=== PATIENT | male | born 1985 | race Caucasian/White ===

== ENCOUNTER 2017-05-11 13:57 | Emergency (ER) | payer OTHER, SELFPAY ==
[2017-05-11 13:58] VITALS: BP 158/122; PULSE 111; RESP 16; TEMP 35.8; O2SAT 97; BMI 33.3
[2017-05-11] MEDS: HYDROcodone Bitartrate/Apap 5/325 Tablet PO (14:19)
[2017-05-11] MEDS: Diphth,Pertuss(Acell),Tet Vac 0.5 ML Vial IM (14:20)
[2017-05-11] MEDS: Silver Sulfadiazine 1% Crm 50 gm Bottle 1 APPLIC TOPICAL (14:21)
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
--- NOTE | 2017-05-11 15:37 | ED.DEP ---
ED Disposition - Plan for ED Patient: Disposition: Home or Assisted Living Chief Complaint: Burn Instructions: ED Burn Thermal D 2nd Dressing Prescriptions: Hydrocodone Bitart/Apap 5-325 [[place] 5/325] 1 - 2 tablet PO Q6H PRN PRN 4 Days #12 tablet PRN Reason: Pain Referrals: [facility] [[facility]] - 3-5 Days
--- NOTE | 2017-05-11 15:40 | DCINST.ED_ITS ---
ED Disposition - Plan for ED Patient: Disposition: Home or Assisted Living Chief Complaint: Burn Instructions: ED Burn Thermal D 2nd Dressing Prescriptions: Hydrocodone Bitart/Apap 5-325 [[place] 5/325] 1 - 2 tablet PO Q6H PRN PRN 4 Days # 12 tablet PRN Reason: Pain Referrals: [facility] [[facility]] - 3-5 Days
--- NOTE | 2017-05-11 15:44 | ED.DEP ---
ED Disposition - Plan for ED Patient: Disposition: Home or Assisted Living Chief Complaint: Burn Instructions: ED Burn Thermal D 2nd Dressing Prescriptions: Hydrocodone Bitart/Apap 5-325 [[place] 5/325] 1 - 2 tablet PO Q6H PRN PRN 4 Days #12 tablet PRN Reason: Pain Referrals: [facility]] - 3-5 Days
--- NOTE | 2017-05-11 15:45 | DCINST.ED_ITS ---
ED Disposition - Plan for ED Patient: Disposition: Home or Assisted Living Chief Complaint: Burn Instructions: ED Burn Thermal D 2nd Dressing Prescriptions: Hydrocodone Bitart/Apap 5-325 [[place] 5/325] 1 - 2 tablet PO Q6H PRN PRN 4 Days # 12 tablet PRN Reason: Pain Referrals: [facility] [[facility]] - 3-5 Days
[2017-05-11 16:03] VITALS: BP 145/99; PULSE 83; RESP 16; O2SAT 99
== END 2017-05-11 16:04 | disposition home or self-care (01) ==
PROVIDERS: Emergency Provider Emergency Medicine; Family Provider Physician Assistant; PCP Physician Assistant
DX: T30.0 Burn of unspecified body region, unspecified degree (principal); T23.231A Burn of second degree of multiple right fingers (nail), not including thumb, initial encounter; X08.8XXA Exposure to other specified smoke, fire and flames, initial encounter; Y93.9 Activity, unspecified; Y92.9 Unspecified place or not applicable; Y99.9 Unspecified external cause status; Z23 Encounter for immunization
CPT/HCPCS: 90715; 99283; J7030

== ENCOUNTER 2017-10-17 14:08 | Observation (INO) | payer OTHER, SELFPAY ==
[2017-10-17] VITALS (10 sets, daily range): BP systolic 128–154; BP diastolic 71–101; PULSE 63–81; RESP 12–20; TEMP 36.3–36.8; O2SAT 95–99; BMI 33.0; BMI 32.7
--- NOTE | 2017-10-17 14:19 | EKG12_ITS ---
Test Reason : CP Blood Pressure : / mmHG Vent. Rate : 068 BPM Atrial Rate : 068 BPM P-R Int : 116 ms QRS Dur : 124 ms QT Int : 390 ms P-R-T Axes : 018 014 042 degrees QTc Int : 414 ms Normal sinus rhythm RSR' or QR pattern in V1 suggests right ventricular conduction delay ST & T wave abnormality, consider anterior ischemia Abnormal ECG Confirmed by BRANDY GALLAGHER ([id number]), editor farm journal ALEA OSBORN ([id number]) on 10/22/2017 2:34:27 PM Referred By: Dimas Patel Confirmed By:BRANDY GALLAGHER
[2017-10-17] MEDS: Aspirin 81 MG TAB.CHEW 324 MG PO (14:29)
[2017-10-17 14:32] LABS: Absolute Lymphocyte Count 2.93 X10^3/ul (0.83-4.51); Absolute Neutrophil Count 3.7 X10^3/uL (2.0-7.7); Basophil# 0.06 X10^3/uL; Basophil% 0.8 % (0-1); Eosinophil# 0.11 X10^3/uL; Eosinophils% 1.4 % (0-5); Hematocrit 47.4 % (40-54); Hemoglobin 16.4 g/dl (13.0-16.5); Lymphocyte # 2.93 X10^3/ul (4.0); Lymphocyte % 38.6 % (19-41); Mean Corp Hgb Conc 34.6 g/gl (32-36); Mean Corpuscular Hgb 29.3 pg (27.0-32.0); Mean Corpuscular Volume 84.8 fL (80-94); Mean Platelet Vol. 11.4 fl (6.2-12.0); Monocyte# 0.75 X10^3/uL; Monocyte% 9.9 % (0-10); Neutrophil # 3.73 X10^3/uL (2.7-7.7); Neutrophil % 49.2 % (47-70); Platelet Count 261 K/mm3 (150-450); RBC Distribution Width CV 12.6 % (11.6-14.6); RBC Distribution Width SD 39.1 fl (35.1-43.9); Red Blood Count 5.59 M/mm3 (4.6-6.2); White Blood Count 7.6 K/mm3 (4.4-11.0)
[2017-10-17 14:33] LABS: POSITIVE COUNT NO; POSITIVE DIFFERENTIAL NO; POSITIVE MORPHOLOGY NO
[2017-10-17 14:44] LABS: Anion Gap 9 (5-15); BUN 17 mg/dL (7-18); BUN/Creat Ratio 12.1 RATIO (10-20); Calcium,Total 9.1 mg/dL (8.5-10.1); Chloride 105 mmol/L (98-107); Creatinine, Serum 1.41 mg/dL (0.70-1.30); EST Glomerular Filtration Rate 62 mL/min (>60); Est Glom Filt Rate - Afr Amer 75 mL/min (>60); Estimated Creatinine Clearance 89.89 ml/min; Glucose 91 mg/dL (74-106); Potassium 3.7 mmol/L (3.5-5.1); Sodium Level 142 mmol/L (136-145)
--- NOTE | 2017-10-17 14:48 | ED.DCSUM_ITS ---
- ER Visit Summary Date of Service: 10/17/17 Chief Complaint: Abnormal EKG History of Present Illness: The patient is a 32 M presents to the emergency department with intermittent chest pain and an abnormal EKG. The patient is otherwise healthy. He is on no daily medications. He had outpatient physical done 2 days ago. He had told the nurse practitioner the been having intermittent chest pain. It is not exertional. He denies orthopnea. He states from time to time, he will get a tightness in his left chest. He denies being short of breath. They did an EKG which was abnormal. He was referred to Dr. Joy who called the patient and told him to come to the emergency department. There is no known history of coronary vascular disease. He denies any recent travel. He has no history of pulmonary embolus. Physical Examination: Vital signs reviewed General: Well-nourished, well-developed Head: Normocephalic, atraumatic Eyes: Pupils equal and reactive, extraocular muscles intact Neck, supple, no lymphadenopathy Heart: Regular rate and rhythm Respiratory: No distress, clear bilaterally Abdomen: Soft, nontender, nondistended, no peritoneal signs Back: Nontender Extremities: Nontender, no edema, no cords Skin: Normal color no rash Neuro: Alert and oriented, no focal or lateralizing deficits Test Results: [] Emergency Department Course and Treatment: The patient presents to the emergency department with intermittent chest pain. His EKG is obtained. He has rather large anterior T-wave inversions that are concerning for LAD versus posterior distribution of ischemia. He has absolutely no pain at rest. The patient does have a strong family history of heart disease. His father had his first NE at 35. Labs are obtained. His cardiac enzymes are negative. I did review the EKG with Dr. Estes. As this EKG is very concerning, the plan will be to admit the patient overnight for heart catheterization in the morning. The patient is agreeable with this plan of care. Treatment Plan: [] Disposition: Admission Impression: 1. Abnormal EKG This note was generated with [employer] dictation software. It may contain incorrect words, spelling, and punctuation that were not noted in review of the chart prior to signing ED Disposition - Plan for ED Patient: Chief Complaint: Chest Pain Referrals: Adam Durant PA [Primary Care Provider] -
[2017-10-17] MEDS: Clopidogrel Bisulfate 300 MG Tablet PO (15:31)
[2017-10-17] MEDS: Enoxaparin 120 MG/0.8 ML Syringe SC (15:57)
--- NOTE | 2017-10-17 16:33 | PCM.CONS.C ---
Problem List (1) Chest pain Status: Acute (2) Abnormal EKG Status: Acute (3) Hypertension Status: Chronic Reason for Consult Date of Consultation: 10/17/17 Reason for Consultation: Chest pain, abnormal EKG, hypertension, positive family history of premature coronary artery disease History of Present Illness: The patient is a 32 year old M nondiabetic, lifelong non-smoker, occasional alcohol user with 1 beer per week, strong positive family history in his father who had a myocardial infarction at age 35, unknown treatment per the patient, with hypertension, and no known previous cardiac history. The patient states that he has had left upper chest pain on and off for the past year, usually while at work and under significant amount of stress. He describes this as a heaviness, with no associated shortness of breath or nausea. Patient had a recurrent episode yesterday which he brought to the attention of his PCP and an EKG was performed. This demonstrated normal sinus rhythm, with evidence of incomplete right bundle branch block and significant anterior septal ST segment depression consistent with ischemia. He was then urgently referred to Dr. Joy's office for evaluation, and upon reviewing the EKG the patient was sent to the emergency room. Currently the patient is chest pain-free, has no known history of coronary disease, and recently traveled to [place] although his chest pain precedes his recent travel. He denies any associated shortness of breath, dyspnea on exertion, lower extremity edema, presyncope or syncope. He does not formally exercise. He denies any illicit drugs, [id number] or herbal medications. He is on no prescribed medications. He has never had a stress test or catheterization in the past. He denies any other family history of coronary disease in any first-degree relatives. On further history the patient states that his chest pain is been ongoing periodically over the last year or so, mostly with stress but occasionally with exercise as well causing him to stop. He does not formally exercise. Upon arrival to the ER his blood pressure was 153/100, and is currently 140/101.. [] Past Medical History Allergies/Adverse Reactions: Allergies No Known Allergies Allergy (Verified 10/17/17 14:09) Home Medications: Ambulatory Orders Medication Instructions Recorded NK [NK] 10/17/17 Past Medical History (Chronic Problems): Chronic Problems Hypertension (Chronic) Smoking Status: Never smoker Review of Systems - Review of Systems General: Denies: Fever, Night Sweats, Fatigue Cardiovascular: Reports: Chest Discomfort, Chest Discomfort at Rest, Chest Discomfort with Exertion. Denies: Shortness of Breath, Orthopnea, PND, Peripheral Edema, Palpitations, Lightheadedness, Dizziness, Near Syncope, Syncope Respiratory: Denies: Cough, Sputum Production, Hemoptysis Gastrointestinal: Denies: Hematemesis, Hematochezia, Melena Genitourinary: Denies: Dysuria, Hematuria Skin: Denies: Rash Subjectve: Patient resting comfortably, asymptomatic. Objective: Vital Signs Temp Pulse Resp BP Pulse Ox 97.4 F L 69 20 H 140/99 H 97 10/17/17 14:09 10/17/17 16:00 10/17/17 16:00 10/17/17 16:00 10/17/17 16:00 General: Awake, Alert, Oriented x 3 HEENT: PERRL, EOMI, Sclera Non Icteric Neck: Supple, Good ROM, No Lymph Node Enlargement Lungs: Clear to auscultation Cardiovascular: Regular Rhythm, Normal S1, Normal S2, No Murmurs, No Rubs, No Gallops Vascular: No Carotid Bruits, Normal Femoral Pulses, Normal Radial Pulses, Normal Dorsalis Pedal Pulse, Normal Posterior Tibial Pulses Abdomen: Bowel Sounds Present, Soft, Non Tender, No HSM, No Organomegaly Extremities: No Cyanosis, No Clubbing, No edema Neurological: No Focal Motor or Sensory Deficit Rhythm: EKG: As above ECHO: Pending Stress Test: Cardiac Cath: Pending PCI: CT Surgery: Holter monitor: EPS: PPM: CXR: Chest CT Scan: Assessment/Plan 1. Chest pain: The patient presents with intermittent chest pain going on for the last year or so, described as a sharp leg pain in the left upper chest, with both exertion and on exertion, relieved with rest, superimposed upon significant systolic and diastolic hypertension, significant abnormal EKG for possible anterior ischemia, as well as strong positive family history of premature coronary artery disease in his non-smoking father at age 35. At this point I recommend patient be admitted to the hospital with telemetry, given 4 baby aspirins, loaded with Plavix 300 mg ?1, followed by 75 mg a day. In addition I recommend Nitropaste 1/2 inch every 6 hours to reduce his systemic and diastolic pressures. Given his positive family history of premature coronary disease in his father, combined with his abnormal EKG concerning for ischemia, I recommend that he undergo a diagnostic left her catheterization tomorrow morning. The risks/benefits of the procedure were thoroughly explained to the patient including specific attention to lack of on-site surgical backup, and the patient is agreed to proceed. The patient has normal coronary arteries then his EKG changes may be due to microvascular ischemia due to severe diastolic hypertension which would benefit from vasodilators, such as Imdur or amlodipine. The patient has no significant coronary disease would discontinue his Plavix but would continue baby aspirin given his positive family history of coronary disease. In addition I recommend a fasting lipid profile. In addition I recommend that he undergo a 2D echo with Doppler to document his LV function, RV size, and pulmonary pressures as he has significant risk factors for possible non-diagnosed obstructive sleep apnea. Given his significant chest pain and abnormal EKG would recommend Lovenox 1 mg/kg subcu twice daily. His first troponins are negative, but would recommend a full set of 3 troponins for evaluation. 2. Hypertension: The patient has evidence of chronic renal insufficiency which may suggest renal artery stenosis combined with his severe systolic and diastolic hypertension. Would recommend renal ultrasound evaluation once his catheterization is been completed. He will undergo IV fluid rehydration for his catheterization. 3. Hyperlipidemia: Recommend obtaining a fasting lipid profile for cardiac risk stratification. If his LDL is greater than 100 would recommend statin based medications for primary prevention given his positive family history of coronary disease. 4. Thank you very much for the opportunity to participate in the cardiac care of your patient. Consultation time took place between 420 and 4:50 PM. Code Visit Inpatient E&M: 29192 Init Hosp L2
--- NOTE | 2017-10-17 17:15 | EKG12_ITS ---
Test Reason : ADMISSION Blood Pressure : / mmHG Vent. Rate : 068 BPM Atrial Rate : 068 BPM P-R Int : 128 ms QRS Dur : 128 ms QT Int : 394 ms P-R-T Axes : 000 004 036 degrees QTc Int : 418 ms Normal sinus rhythm Non-specific intra-ventricular conduction block T wave abnormality, consider anterior ischemia Abnormal ECG No previous ECGs available Confirmed by CRISTI CARLSON, YESSI ([id number]), pictures editor ALEA OSBORN ([id number]) on 10/23/2017 2:04:54 PM Referred By: Dimas Patel Confirmed By:YESSI COLIN MD
--- NOTE | 2017-10-17 17:22 | PCM.HP.STD ---
Problem List (1) Anxiety Status: Chronic (2) Chest pain Status: Acute (3) Hypertension Status: Chronic History of Present Illness Date of Admission: 10/17/17 Chief Complaint: Chest pain The patient is a 32 year old M with no significant PMH presents with a significant h/o intermittent chest pain brought on with activity and stress. The chest pain is accompanied with SOB. he has a significant family h/o Mi in his family with his father at 35 who is a non-smoker and his mother in her mid to late 40's who is a smoker. He has been having this chest pain for over a year. In the ER the EKG showed T wave inversions in the anterior leads and ST depression without an elevated troponin. Past Medical History Past Medical History (Chronic Problems): Chronic Problems Hypertension (Chronic) Anxiety (Chronic) Allergies No Known Allergies Allergy (Verified 10/17/17 14:09) Home Medications: Ambulatory Orders Medication Instructions Recorded NK [NK] 10/17/17 Surgical History: no surgical history Smoking Status: Former smoker Tobacco Use: Cigarettes, Chew Alcohol: None Drugs: None - *Family History Paternal History Items: Heart Disease Maternal History Items: Heart Disease Review of Systems Constitutional: Denies: Chills, Fever, Weight Change HEENT: Denies: Head Aches, Sinus Congestion, Sinus Drainage Cardiovascular: Denies: Chest Pain, Palpitations Respiratory: Denies: Cough, Shortness of breath at rest, Sputum production Gastrointestinal: Denies: Abdominal Pain, Nausea, Vomiting Genitourinary: Denies: Dysuria Musculoskeletal: Denies: Joint Pain, Joint Tenderness Skin: Denies: Rash, Wounds Neurological: Denies: Numbness, Tingling, Focal weakness Psychiatric: Denies: Anxiety, Depression Hematologic/ Lymphatic: Denies: Easy Bruising, Easy Bleeding VTE Information - Inpt Only VTE Present on Admission: No Patient Problems: Active and Suspected Problems Chest pain (Acute) Abnormal EKG (Acute) - Physical Exam General: Alert, Oriented x3, Cooperative, No apparent distress HEENT: Atraumatic, EOMI, Normocephalic Oral: Moist Mucosa Neck: Supple, No JVD Lungs: Clear to auscultation, Normal air movement, No rhonchi, No wheeze, No rales Cardiovascular: Regular rate, Regular Rhythm, Normal S1, Normal S2, No murmurs Abdomen: Soft, Non Tender, Non-Distended, No Hepato-splenomegaly Skin: No rashes, No breakdown Musculoskeletal: No Tenderness to Palpation of Joints or Extremities Neurological: Neuro grossly intact, Sensory exam intact to light touch and pain Psych/Mental Status: Normal Affect, Appropriate Vital Signs Temp Pulse Resp BP Pulse Ox 97.8 F 69 20 H 148/101 H 99 10/17/17 17:05 10/17/17 17:05 10/17/17 17:05 10/17/17 17:07 10/17/17 17:05 Oxygen Delivery Method Room Air Weight: 261 lb 11.019 oz Body Mass Index (BMI) 32.7 Assessment/Plan All Active Problems Chest pain (Acute) Abnormal EKG (Acute) 1. Chest pain with T wave invesions and ST depression/HTN/THEO - given his chest pain, the EKG changes and the family history will proceed with cath in the morning - c/s to cardiology - Loaded with plavix and aspirin and therapeutic lovenox - Will monitor HTN for now, c/w nitropaste - Will give IVF for his THEO, could not find any previous creatinine for comparison 2. Anxiety - He has had significant stress with trying to adopt and his home life - He has been reticent about seeing a therapist or trying medications - Discussed that his anxiety may be a significant contributor - Zoloft 50 mg daily DVT: Given therapeutic lovenox Diet: Cardiac then NPO prior to cath Code Visit Inpatient E&M: 74477 Init Hosp L3
[2017-10-17] MEDS: 0.9% Normal Saline 1,000 ML 75 ML IV (18:11)
[2017-10-17 19:14] LABS: Cholesterol 186 mg/dL (200); High Density Lipoprotein 49 mg/dL; Triglycerides 97 mg/dL; Very Low Density Lipoprotein 19 mg/dL (5-40)
[2017-10-17] MEDS: Acetaminophen 325 MG Tablet 650 MG PO (22:58)
[2017-10-18] VITALS (14 sets, daily range): BP systolic 118–137; BP diastolic 67–88; PULSE 54–76; RESP 16–18; TEMP 36.5–36.8; O2SAT 96–98
[2017-10-18] MEDS: Clopidogrel Bisulfate 75 MG Tablet PO (05:10)
[2017-10-18] MEDS: Aspirin 81 MG TAB.CHEW PO (05:11)
[2017-10-18 05:23] LABS: Absolute Lymphocyte Count 3.33 X10^3/ul (0.83-4.51); Absolute Neutrophil Count 2.8 X10^3/uL (2.0-7.7); Basophil# 0.07 X10^3/uL; Eosinophil# 0.19 X10^3/uL; Eosinophils% 2.7 % (0-5); Hematocrit 44.6 % (40-54); Hemoglobin 14.8 g/dl (13.0-16.5); Lymphocyte # 3.33 X10^3/ul (4.0); Lymphocyte % 47.1 % (19-41); Mean Corp Hgb Conc 33.2 g/gl (32-36); Mean Corpuscular Hgb 28.6 pg (27.0-32.0); Mean Corpuscular Volume 86.3 fL (80-94); Mean Platelet Vol. 10.9 fl (6.2-12.0); Monocyte# 0.71 X10^3/uL; Neutrophil # 2.77 X10^3/uL (2.7-7.7); Neutrophil % 39.2 % (47-70); Platelet Count 227 K/mm3 (150-450); RBC Distribution Width CV 12.4 % (11.6-14.6); RBC Distribution Width SD 39.5 fl (35.1-43.9); Red Blood Count 5.17 M/mm3 (4.6-6.2); White Blood Count 7.1 K/mm3 (4.4-11.0)
[2017-10-18 05:25] LABS: POSITIVE COUNT NO; POSITIVE DIFFERENTIAL NO; POSITIVE MORPHOLOGY NO
[2017-10-18 05:26] LABS: International Normalized Ratio 1.2; Prothrombin Time (Protime)PT. 14.8 SECONDS (11.7-14.9)
[2017-10-18 05:33] LABS: Anion Gap 8 (5-15); BUN 18 mg/dL (7-18); BUN/Creat Ratio 14.4 RATIO (10-20); Calcium,Total 8.4 mg/dL (8.5-10.1); Chloride 106 mmol/L (98-107); Creatinine, Serum 1.25 mg/dL (0.70-1.30); EST Glomerular Filtration Rate 71 mL/min (>60); Est Glom Filt Rate - Afr Amer 86 mL/min (>60); Glucose 88 mg/dL (74-106); Potassium 3.7 mmol/L (3.5-5.1); Sodium Level 141 mmol/L (136-145)
--- NOTE | 2017-10-18 05:55 | EKG12_ITS ---
Test Reason : AM EKG Blood Pressure : / mmHG Vent. Rate : 058 BPM Atrial Rate : 058 BPM P-R Int : 128 ms QRS Dur : 130 ms QT Int : 442 ms P-R-T Axes : 018 024 041 degrees QTc Int : 433 ms Sinus bradycardia with sinus arrhythmia Non-specific intra-ventricular conduction block T wave abnormality, consider anterior ischemia Abnormal ECG When compared with ECG of 17-OCT-2017 17:18, MANUAL COMPARISON REQUIRED, DATA IS UNCONFIRMED Confirmed by CRISTI CARLSON, YESSI ([id number]), art editor ALEA OSBORN ([id number]) on 10/23/2017 2:03:27 PM Referred By: Dimas Patel Confirmed By:YESSI COLIN MD
[2017-10-18] MEDS: DiphenhydrAMINE 25 MG Capsule 50 MG PO (08:46)
--- NOTE | 2017-10-18 08:48 | CASEMGMT ---
According to [facility] website, the following are in-network tertiary facilities: [facility], [facility], [facility] and . Adrián HUI CM
[2017-10-18] MEDS: 0.9% Normal Saline 1,000 ML 75 ML IV (10:11)
--- NOTE | 2017-10-18 11:38 | PCM.DC ---
- Discharge Diagnoses Current Active Problems: Current Active and Chronic Problems Chest pain (Acute) Abnormal EKG (Acute) Hypertension (Chronic) Anxiety (Chronic) You will use the following diet at home:: Cardiac - <2 g sodium daily Your food should be the consistency of: Regular Your liquids should be the consistency of: Regular/Thin Discharge Activity: Return to Normal Activity Allergies/Adverse Reactions: Allergies No Known Allergies Allergy (Verified 10/17/17 14:09) Medications to take at Discharge Aspirin [Aspirin, Baby] 81 mg PO DAILY@0800 tab.chew 10/18/17 Atorvastatin Calcium [Lipitor] 10 mg PO QHS #30 tab 10/18/17 Losartan Potassium [Cozaar] 25 mg PO DAILY #30 tab 10/18/17 Sertraline HCl [Zoloft] 50 mg PO DAILY #30 tab 10/18/17 The following prescriptions were given: Atorvastatin Calcium [Lipitor] 10 mg PO QHS #30 tab Losartan Potassium [Cozaar] 25 mg PO DAILY #30 tab Sertraline HCl [Zoloft] 50 mg PO DAILY #30 tab Orders to be completed after discharge: Complete Sleep Workup Post D/C [SL] Time Frame: 2 Weeks, Location: None Selected Primary Care Physician: Adam Durant PA [Primary Care Provider] - Please follow up with your Primary Care Physician in: 1-2 weeks Test Results: Test results from this visit will be discussed in further detail at your follow-up appointment, if applicable. Please Follow Up With: Jim Rainey MD When: 1-2 weeks Proposed Discharge Date: 10/18/17
--- NOTE | 2017-10-18 14:30 | NURSING ---
ambulated pt s/p bedrest for heart cath. tolerated well. no bleeding noted. site remained soft.
[2017-10-18] MEDS: Losartan Potassium 25 MG Tablet PO (14:46)
[2017-10-18] MEDS: Sertraline 50 MG Tablet PO (14:46)
--- NOTE | 2017-10-18 14:53 | PCM.DC.SUM ---
<Ron Gramajo - Last Filed: 10/18/17 14:59> Discharge Date and Diagnosis - Problem List Patient Problems: Active and Suspected Problems Chest pain (Acute) Abnormal EKG (Acute) Date of Admission: 10/17/17 Date of Discharge: 10/18/17 - Primary Discharge Diagnosis Active and Suspected Problems Chest pain (Acute) Abnormal EKG (Acute) HTN suspected KLAUS obesity Anxiety - Secondary Discharge Diagnosis Chronic Problems Hypertension (Chronic) Anxiety (Chronic) Hospital Course and Treatment Imaging Results: RAD/Chest 1 View (Portable) IMPRESSION: Normal x-ray examination of the chest. Echo: Interpretation Summary The estimated ejection fraction is 65 %. Normal diastology for age. Trivial mitral valve insufficiency. There is no comparison study available. Consults: Estes - cardiology Operations: None Procedures: 2-D Echocardiogram, Cardiac catheterization Summary of Care Provided: Physical exam on day of discharge: General: Resting comfortably NAD Psych: A/Ox3 normal affect HEENT: PEARRLA AT NC Neck: Supple NT CV: RRR no m/t/r/g/h Resp: CTA Abd: [id number] Soft NT no guarding or rigidity Ext: DP2+= no edema Skin: W/D normal turgor Lymph/Heme: No active bleeding or adenopathy Neuro: CN2-12 intact Hospital course: The patient is a 32 year old M with no significant medical hx who presented to the ER with chief complaint of chest pain and SOB described as worse with activity and stress and intermittent. He had a positive family hx of CAD. EKG showed t wave inversions and ST depressions. Trop neg. Cardiology contacted and felt the patient would benefit from a heart cath. He was taken the following AM and no intervention was performed. Report is pending. He was placed on a statin, asa, and ARB for his CP, as well as SSRI for anxiety. LDL 118.Trop neg x 2. CXR neg. Echo ef 65% normal diastology, normal LV function, size. He was discharged home in stable condition. Cardiology recommended a sleep study for suspected sleep apnea and this was ordered for him to complete as an outpatient. Advised follow up with PCP and Cardiology. Discharged home in stable condition. Patient was seen by Ron Gramajo PA-C under the supervision of Dr. Brewer [] Discharge Activity: Return to Normal Activity Home Medications: Medications to take at Discharge Aspirin [Aspirin, Baby] 81 mg PO DAILY@0800 tab.chew 10/18/17 Atorvastatin Calcium [Lipitor] 10 mg PO QHS #30 tab 10/18/17 Losartan Potassium [Cozaar] 25 mg PO DAILY #30 tab 10/18/17 Sertraline HCl [Zoloft] 50 mg PO DAILY #30 tab 10/18/17 Following Prescrptions Were Given to Patient: Atorvastatin Calcium [Lipitor] 10 mg PO QHS #30 tab Losartan Potassium [Cozaar] 25 mg PO DAILY #30 tab Sertraline HCl [Zoloft] 50 mg PO DAILY #30 tab Other Amb Orders: Complete Sleep Workup Post D/C [SL] Time Frame: 2 Weeks, Location: None Selected Primary Care Physician: Adam Durant PA [Primary Care Provider] - Please follow up with your Primary Care Physician in: 1-2 weeks Please Follow Up With: Jim Rainey MD When: 1-2 weeks Please Follow Up With: Collin Estes MD Medical Necessity - Tobacco Use Smoking Status: Former smoker Tobacco Use: Cigarettes, Chew Meaningful Use Info Meaningful Use Diagnoses (Choose all that apply): None applicable <Renard Brewer - Last Filed: 10/18/17 15:14> Discharge Date and Diagnosis - Primary Discharge Diagnosis Active and Suspected Problems Chest pain (Acute) Abnormal EKG (Acute) - Secondary Discharge Diagnosis Chronic Problems Hypertension (Chronic) Anxiety (Chronic) Hospital Course and Treatment Operations: None Procedures: 2-D Echocardiogram, Cardiac catheterization Summary of Care Provided: Patient seen and examined independently. Data reviewed. I agree with the above note by the physician mailroom assistant. The patient is a 32 year old M presents with chest pain. Patient had abnormal EKG with incomplete right bundle and deep anterior ST depressions. Patient underwent a left heart catheterization today that was normal. Patient discharged home. [] Discharge Diet: No Restrictions Discharge Activity: Return to Normal Activity Disposition: Home Minutes spent on discharge:: 28 Patient Condition:: Good Meaningful Use Info Meaningful Use Diagnoses (Choose all that apply): None applicable Code Visit OBSV E&M: 56805 Observation care discharge
== END 2017-10-18 11:40 | disposition home or self-care (01) ==
LOC: ED 14:43 → PCU 16:27
PROVIDERS: Internal Medicine Cardiovascular Disease; Admitting Provider Family Medicine; Emergency Provider Emergency Medicine; Family Provider Physician Assistant; PCP Physician Assistant
DX: R07.89 Other chest pain (principal); R94.31 Abnormal electrocardiogram [ECG] [EKG]; I10 Essential (primary) hypertension; F41.9 Anxiety disorder, unspecified; N17.9 Acute kidney failure, unspecified; I25.10 Atherosclerotic heart disease of native coronary artery without angina pectoris; I34.0 Nonrheumatic mitral (valve) insufficiency; E66.9 Obesity, unspecified; Z68.32 Body mass index [BMI] 32.0-32.9, adult; Z82.49 Family history of ischemic heart disease and other diseases of the circulatory system; Z87.891 Personal history of nicotine dependence; Z71.3 Dietary counseling and surveillance
CPT/HCPCS: 36415; 71045; 80048; 80061; 84484; 85025; 85610; 85730; 93005; 93306; 93458; 93975; 96360; 96361; 96372; 99152; 99218; 99284; J7030; Q9957; A4216; C1769; C1894; G0378; Q9967

== ENCOUNTER → 2017-11-11 20:00 | Outpatient (CLI) | payer OTHER, SELFPAY ==
[2017-11-11] MEDS: Zolpidem Tartrate 5 MG Tablet PO (21:30)
== END ==
PROVIDERS: Family Provider Physician Assistant; PCP Physician Assistant; Visit Provider Internal Medicine Cardiovascular Disease
DX: R40.0 Somnolence (principal)
CPT/HCPCS: 95810

== ENCOUNTER → 2017-12-27 07:38 | Outpatient (CLI) | payer OTHER, SELFPAY ==
[2017-11-26 11:02] VITALS: BMI 33.0
[2017-12-27 09:02] LABS: AST(SGOT) 29 U/L (15-37); Alanine Aminotransfer ALT/SGPT 74 U/L (16-61); Albumin, Serum 3.7 g/dL (3.2-5.0); Alkaline Phosphatase 89 U/L (45-117); Bilirubin, Direct 0.17 mg/dL (0.00-0.30); Cholesterol 154 mg/dL (200); Globulin 3.5 g/dL (2.2-4.2); High Density Lipoprotein 46 mg/dL; Protein, Total 7.2 g/dL (6.4-8.2); Triglycerides 172 mg/dL; Very Low Density Lipoprotein 34 mg/dL (5-40)
== END ==
PROVIDERS: Family Provider Physician Assistant; PCP Physician Assistant; Referring Provider Internal Medicine Cardiovascular Disease; Visit Provider Internal Medicine Cardiovascular Disease
DX: Z98.890 Other specified postprocedural states (principal)
CPT/HCPCS: 36415; 80061; 80076

== ENCOUNTER → 2018-02-12 07:55 | Outpatient (CLI) | payer OTHER, SELFPAY ==
--- NOTE | 2018-02-12 13:01 | PFT ---
INTRODUCTION: The patient is a 33-year-old male who presents for pulmonary function testing secondary to a diagnosis of asthma. Respiratory therapy reports good patient effort. Bronchodilators were used during testing. INTERPRETATION: Forced expiration spirometry demonstrates no evidence of a large airways obstructive ventilatory defect. There was no significant response to aerosolized bronchodilators, based upon strict ATS criteria. Spirograms are of good quality and plateau normally. Body plethysmography was performed and reveals a decreased TLC to 6.2 L, 75% of predicted, indicative of a mild restrictive ventilatory defect. The ERV is significantly reduced at 14% of predicted, likely indicative of underlying body habitus effect. Diffusing capacity by single breath CO is mildly reduced at 74% of predicted. IMPRESSION: These pulmonary function studies demonstrate the presence of a mild restrictive ventilatory impairment with a symmetric reduction in diffusing capacity. There are no previous pulmonary function studies available for comparison.
--- NOTE | 2018-02-12 13:04 | PFT_ITS ---
INTRODUCTION: The patient is a 33-year-old male who presents for pulmonary function testing secondary to a diagnosis of asthma. Respiratory therapy reports good patient effort. Bronchodilators were used during testing. INTERPRETATION: Forced expiration spirometry demonstrates no evidence of a large airways obstructive ventilatory defect. There was no significant response to aero solized bronchodilators, based upon strict ATS criteria. Spirograms are of good quality and plateau normally. Body plethysmography was performed and reveals a decreased TLC to 6.2 L, 75% of predicted, indicative of a mild restrictive ventilatory defect. The ERV is significantly reduced at 14% of predicted, likely indicative of underlying body habitus effect. Diffusing capacity by single breath CO is mildly reduced at 74% of predicted. IMPRESSION: These pulmonary function studies demonstrate the presence of a mild restrictive ventilatory impairment with a symmetric reduction in diffusing capacity. There are no previous pulmonary function studies available for comparison.
== END ==
PROVIDERS: Family Provider Physician Assistant; PCP Physician Assistant; Referring Provider Nurse Practitioner Acute Care; Visit Provider Nurse Practitioner Acute Care
DX: J45.909 Unspecified asthma, uncomplicated (principal)
CPT/HCPCS: 94060; 94726; 94729

== ENCOUNTER → 2018-09-03 08:08 | Outpatient (CLI) | payer OTHER, SELFPAY ==
[2018-02-25 07:14] VITALS: BMI 34.6
[2018-05-05 16:02] VITALS: BMI 34.6
--- NOTE | 2018-09-03 13:14 | PFTCOMP_ITS ---
COMPLETE PULMONARY FUNCTION TEST INTERPRETATION Brief HPI: Patient is a 33 year old male, currently under the care of myself, who presents to [facility] for complete pulmonary function tests secondary to diagnosis of asthma. Respiratory therapist reports good effort and reproducible results. Interpretation: Forced expiration spirometry shows no large airways obstructive ventilatory defect with an FEV1 of 77% predicted. There is no significant bronchodilator response by strict ATS criteria. Spirograms are of good quality and plateau slowly, indicating slowly emptying areas of the lungs. The respiratory flow volume loop shows a normal pattern. Lung volumes by body plethysmography show a decreased total lung capacity at 6.96 L, 84% predicted. All other lung volumes are within normal limits. Diffusion capacity by carbon monoxide is decreased at 56% predicted. The airway resistance is elevated. Compared to previous pulmonary function tests from 02/12/2018, there is been a significant reduction in diffusion capacity by 23%. Impression: Mild restrictive ventilatory defect with a reduction diffusing capacity that is out of proportion. Consider chest imaging if not completed previously.
== END ==
PROVIDERS: Family Provider Physician Assistant; PCP Physician Assistant; Referring Provider Internal Medicine Critical Care Medicine; Visit Provider Internal Medicine Critical Care Medicine
DX: J45.909 Unspecified asthma, uncomplicated (principal)
CPT/HCPCS: 94060; 94726; 94729

== ENCOUNTER 2024-10-02 02:00 | Observation (INO) | payer OTHER, MEDICAID, SELFPAY ==
[2024-10-02] VITALS (21 sets, daily range): BP systolic 116–171; BP diastolic 69–94; PULSE 77–97; RESP 16–18; TEMP 36.2–37.1; O2SAT 92–97; BMI 43.3; BMI 44.6
--- OUTSIDE RECORDS SUMMARY | 2024-10-02 03:16 | XMS RPT_ITS | CCD ---
Author Organization [facility] Care Team Providers Care Business Services Specialist Sales Name Role Phone MEDHAT FARAH Unavailable Unavailable VIOLET LOPEZ Unavailable Unavailable NO PRIMARY CARE, Unavailable Unavailable ARIANA GREGORY CNP Admitting Unavailable ARIANA GREGORY CNP Attending Unavailable ARIANA GREGORY CNP Primary Care Unavailable GE, DR SU Almendarez Attending Unavaila ble GE, DR SU lAmendarez Primary Care Unavaila ble GE, DR SU Almendarez Admitting Unavaila ble Unknown, Pcp Unavailable Unavailable Lacy Antoine Unavailable Unavailbarbara e UNKNOWN, PCP Primary Care Unavailable Elina, Ms. Lacy Dobbins Attending Unavailable Adam Durant PA-C Primary Care Provider Adam Durant PA-C Primary Care Provider Bobbi CARROT GRADER INSPECTOR.Ivett VARGAS Primary Care Provider HAAGENIVETT Primary Care Unavailable IVETT MARTINES Referring Unavailable IVETT MARTINES Primary Care Unavailable IVETT MARTINES Attending Unavailable IVETT MARTINES Attending Unavailable Adam DURANT Primary Care Unavailable Adam DURANT Primary Care Unavailable Adam DURANT Attending Unavailable Haagen MANAGER WASTEWATER, Ivett Referring Unavailable Haagen MANAGER WASTEWATER, Ivett Primary Care Unavailable Willow Ayoub Attending Unavailable Haagen CARROT GRADER INSPECTOR.Ivett VARGAS Primary Care Provider Suppan CARROT GRADER INSPECTOR.Idalia VARGAS Unavailable [phone] Su Urrutia MD Unavailable Unavailable Primary Care Provider Unavailabl e System, Provider Not In Primary Care Provider CHAI RIBEIRO Attending Unavailable Medications Current Medications Medication Drug Class(es) Dates Sig (Normalized) Sig (Original) escitalopram 20 mg oral tablet (10 sources) Serotonin Reuptake Inhibitor Start: 06-10-2024 take 1 tablet by mouth once daily escitalopram (Lexapro) 20 MG tablet Take 20 mg by mouth daily. 06/10/2024 Active Start: 12-17-2023 End: 04-30-2024 take 1 tablet by mouth once daily escitalopram oxalate (LEXAPRO) 20 mg tablet Indications: Anxiety with depression Take 1 tablet by mouth once daily. 30 tablet 3 04/30/2024 Active Start: 05-13-2023 End: 12-17-2023 escitalopram oxalate (LEXAPR O) 10 mg tablet Indications: Anxiety with depression 1/2 pill daily X 1 week; then increase to a whole pill daily. 30 tablet 2 09/03/2023 12/17/2023 Discontinued Comment on above: 1/2 pill daily X 1 w redding; then increase to a whole pill daily. Completed/Discontinued Medications Medication Drug Class(es) Dates Sig (Normalized) Sig (Original) fluticasone propionate 0.05 mg/actuat metered dose nasal spray (2 sources) Corticosteroid Start: 01-24-2023 End: 05-13-2023 take 2 spray(s) by mouth once daily fluticasone (FLONASE) 50 mcg/actuation nasal spray Indications: Acute SUSIE (middle ear effusion), bilateral Use 2 Sprays in each nostril once daily. Rinse mouth after use. 1 Each 0 01/24/2023 05/13/2023 Discontinued Comment on above: Use 2 Sprays in each nostril once daily. Rinse mouth after use. ofloxacin 3 mg/ml otic solution (2 sources) Quinolone Antimicrobial Start: 01-24-2023 End: 05-13-2023 ofloxacin (FLOXIN) 0.3 % otic solution Indications: Acute SUSIE (middle ear effusion), bilateral Use 5 Drops in both ears once daily. 5 mL 0 01/24/2023 05/13/2023 Discontinued Comment on above: Use 5 Drops in both ears once daily. NEGATED: Highlighted row has not occurred!No Current Medications (1 source) No Current Medications Problems Active Problems Problem Classification Problem Date Documented Da te Episodic/Chronic Anxiety disorders (8 sources) Mixed anxiety and depressive disorder; Translations: [Other specified anxiety disorders] Onset: 12-18-2023 05-13-2023 Chronic Coronary atherosclerosis and other heart disease (2 sources) Coronary arteriosclerosis; Translations: [Atherosclerotic heart disease of [place] coronary artery without angina pectoris] Onset: 12-17-2023 12-17-2023 Chronic Disorders of lipid metabolism (8 sources) Mixed hyperlipidemia; Translations: [Mixed hyperlipidemia] Onset: 10-04-2016 10-04-2016 Chronic Headache; including migraine (2 sources) Headache; including migraine; Translations: [Headache, unspecified] Onset: 09-11-2022 Immunizations and screening for infectious disease (2 sources) Patient encounter status; Translations: [Encounter for immunization] Onset: 12-17-2023 12-17-2023 Episodic Mood disorders (1 source) Mood disorders; Translations: [Depression, unspecified] Onset: 09-11-2022 Other circulatory disease (2 sources) Elevated blood-pressure reading without diagnosis of hypertension; Translations: [Elevated blood-pressure reading, without diagnosis of hypertension] 09-09-2024 Episodic Other nutritional; endocrine; and metabolic disorders (3 sources) Obesity, unspecified; Translations: [Obesity, unspecified] Onset: 10-16-2017 Chronic Other nutritional; endocrine; and metabolic disorders (6 sources) Obese class II; Translations: [Obesity, unspecified] Onset: 10-16-2017 10-16-2017 Chronic Other nutritional; endocrine; and metabolic disorders (2 sources) Severe obesity; Translations: [Class 3 severe obesity due to excess calories in adult, unspecified BMI, unspecified whether serious comorbidity present] 09-09-2024 Chronic Other nutritional; endocrine; and metabolic disorders (2 sources) Weight loss; Translations: [Weight Loss] Onset: 09-09-2024 Episodic Other screening for suspected conditions (not mental disorders or infectious disease) (4 sources) Encounter for screening for lipoid disorders; Translations: [Encounter for screening for diseases of the blood and blood-forming organs and certain disorders involving the immune mechanism] Onset: 11-15-2021 Episodic Residual codes; unclassified (5 sources) Obstructive sleep apnea syndrome; Translations: [Obstructive sleep apnea (adult) (pediatric)] Onset: 12-17-2023 12-17-2023 Chronic Residual codes; unclassified (2 sources) Obstructive sleep apnea (adult) (pediatric); Translations: [KLAUS (obstructive sleep apnea)] Onset: 12-17-2023 Chronic Suicide and intentional self-inflicted injury (2 sources) Suicidal ideations; Translations: [Suicidal ideations] Onset: 09-11-2022 Episodic Unclassified (2 sources) EVAL 09-10-2022 Comment on above: EVAL Past or Other Problems Problem Classification Problem Date Documented Da te Episodic/Chronic Nonspecific chest pain (7 sources) Chest pain; Translations: [Other chest pain] Onset: 10-29-2017 10-29-2017 Episodic Other lower respiratory disease (7 sources) Restrictive lung disease; Translations: [Other disorders of lung] Onset: 02-14-2018 02-14-2018 Episodic Other lower respiratory disease (1 source) Other disorders of lung; Translations: [Restrictive lung disease] Onset: 02-14-2018 Episodic Unclassified (1 source) HAVING SUICIDAL THOUGHTS 09-10-2022 Comment on above: HAVING SUICIDAL THOU GHTS Results Test Name Value Interpretation Reference Range Facility Office Visiton 09-09-2024 Follow-up visit [id number] Cesar Hussein 1985 M Date Provider Department Center 09/09/2024 [id number] RIBEIRO [facility] None No family history on file Level of Service:[id number] [place] OFFICE/OUTPATIENT [facility] 30 MINUTES Reason for Visit and Comments: Weight Loss [[id number]] - [facility] Progress Noteon 09-09-2024 Progress Note [facility] MEDICAL WEIGHT LOSS MANAGEMENT PROGRAM ROOMING NOTE - INITIAL CONSULTATION Patient: Cesar Hussein Date of : 1985 Service Date: 09/09/2024 Patient is here today to discuss medical weight loss management. This patient is alone for the evaluation today Weight Metrics: Non-Surgical Initial Eval Consult Date: 09/09/24 Initial Height: 6' 2 (188 cm) Initial Weight: 355 lb 3.2 oz (161 kg) [place] Body Weight: 171 lb (77.6 kg) Initial BMI: 45.60 Initial Body Fat %: 54.72 EBW: 184 lb (Flow Sheet: Surgical Wt Loss Management: Baseline) Diabetes Do you currently have diabetes? No Are you currently prescribed insulin? No Are you currently prescribed an oral medication for diabetes? No GERD (Gastroesophageal Reflux Disease) Do you currently have GERD? No Do you get heartburn type symptoms more than twice per week? No Are you currently on a medication for GERD? (not TUMS) (examples: Prilosec/omeprazole, Zantac/ranitidine, etc.) No Hyperlipidemia (high cholesterol) Do you currently have a diagnosis of high cholesterol? No Are you currently prescribed a medication for high cholesterol? (examples Lipitor/Atorvastatin, Pravastatin, Zetia, Tricor, etc.) No Have you been diagnosed with high cholesterol but chosen not to take medication? No Hypertension (high blood pressure) Do you currently have a diagnosis of Hypertension? No Are you currently on a medication for Hypertension? No Have you been diagnosed with Hypertension but have chosen not to take the medication? No Sleep Apnea Do you currently have Sleep Apnea? Yes Are you on a device (CPAP, BiPAP, etc) for Sleep Apnea? Yes Have you been diagnosed with Sleep Apnea but cannot tolerate or have chosen not to treat? No Comorbids Summary (flow sheet comorbids) Falls Risk Assessment Patient does take medications which affect BP or mental status Patient does not have newly prescribed or changed dosage of medications within past 30 days which affect BP or mental status Patient has not fallen in the past 2 months Patient does notdemonstrate unsteady gait Patient uses the following ambulatory assistive devices: NONE Patient states the presence of the following traits which increases risk of fall: NON Patient is not on home O2 Completed by: Nga Hernandez MA [facility] 3607-17-2024 36 printed [facility] 3607-16-2024 36 Name of Caller: Oxana perez Contact Reason for Appointment: Cesar sent in a web request requesting an appointment with Weight Management I'm looking at help with losing weight and keeping that weight. I've gotten to a point where it's out of control and I'm even on a CPAP machine at 39 years old. I just want some help. Called and spoke to patient, advised him that I will send a message to the office for scheduling. Please advise Office Name: Weight Management Medication Refills need, if any: N/A Medication Name: N/A [facility] Pulmonary Visit Reporton Pulmonary Visit Report [facility] [place] [address] [place] [address] OFFICE VISIT Date of Service: 03/24/24 MR#: [id number] Acct: [id number] Name: CESAR HUSSEIN Rep #: [id number] : 1985 Provider: Willow Ayoub NP Age/Sex: 39/M Location: [facility] [place] Status: Signed Assessment and Plan Assessment and Plan (1) KLAUS (obstructive sleep apnea): Status: Chronic Plan: He is receiving excellent benefit from his PAP device, I have recommended that he continue at current settings of AutoPap 7 to 20 cm. New prescription for mask, tubing, supplies be sent to his new vendor, [employer]. No indication for titration study at this time. Follow-up in 12 months with compliance download or sooner if needed. (2) Obesity: Status: Acute Qualifiers: Obesity classification: adult class 3 (BMI >= 40) Serious obesity comorbidity presence: without serious comorbidity Body mass index: BMI 40.0-44.9 Plan: Complicates care, plan, exam, prognosis. Weight loss is warranted through prudent dieting and daily exercise. Plan Details Follow Up: 1 Year (LMR) HPI HPI Comments Details: Patient is a 39-year-old male, currently under the care of Ariana Gregory, is here today to follow- up for obstructive sleep apnea. The patient reports that he had a bad sinus infection last year and needed antibiotics and prednisone but has had no other respiratory illness and has not required ER or urgent care visit. The patient is using AutoPap 7 to 20 cm without significant air leak, oral dryness, snore. There are no concerns about the air pressure. Sleep is refreshing. The patient is reporting good compliance. Daytime hypersomnia is improved. He is utilizing a fullface mask. He reports that he is receiving excellent benefit from PAP therapy. He notices that on the rare day that he does not utilize his device he is drowsy and felt like he did not sleep the night before. He denies headache and dry mouth. He reports that he has been getting his supplies off of [employer] and he has recently gone through a divorce. He is looking to switch his vendor to [employer] and is in need of new supplies today. He is a lifetime non-smoker. He denies shortness of breath, cough, wheeze. He denies chest pain, chest tightness, heart palpitations. The patient has no fever, chills, body aches. He does have some sinus congestion after using his PAP device and reports that he will sneeze and then he is fine. Documentation reviewed with patient today includes: Compliance download from March 22, 2024 shows AHI 1.2, average pressure is 14.8 cm, minimal air leak is identified. He is 100% compliant for the last 30 days Intake Vital Signs 02/25/24 09:11 03/24/24 07:19 Height 6 ft 3 in 6 ft 3 in Weight: 323 lb BMI 40.4 BP 128/90 H Blood Pressure Location Lt brachial Position Sitting Respiration 16 Pulse 67 Pulse Source Monitor Temp 97.8 F Temperature Source Temporal Artery Pulse Oximetry (%) 96 Oxygen Delivery Method room air Intake Visit Reasons: Late 1 Y FU Operations Architect Required: No DME Vendor: [employer] Accompanied by: Self Is patient in pain?: No Allergies No Known Allergies Allergy (Verified 03/24/24 08:55) Medications ???Medication ???Instructions ???Recorded ???Confirmed ???Type escitalopram oxalate 20 mg tablet mg PO DAILY 03/24/24 03/24/24 His tory [facility] Medical History (Updated 03/24/24 @ 09:23 by MORGAN MoralesC) Bronchitis Asthma Anxiety Hypertension Abnormal EKG Chest pain Surgical History History of left knee surgery History of left heart catheterization (10/18/17) Family History Father CAD (coronary artery disease) Myocardial infarction, Onset Age: 35 Mother CAD (coronary artery disease) Myocardial infarction, Onset Age: 40 Tobacco use Social History Smoking Status: Never smoker second hand exposure: No alcohol intake: current alcohol intake frequency: a few times a month Alcohol type: beer substance use type: does not use caffeine: Yes Type: carbonated beverages Number of servings: 1 and coffee Number of servings: 2 Review of Systems Resp Respiratory: Yes as per HPI Exam Const Constitutional: Positive conversant, cooperative, in no acute respiratory distress, healthy appearing, well developed, well nourished, good hygiene and obese Head Head: Yes normocephalic, Yes atraumatic and No cyanosis of lips/distal nose Eyes Eye: Positive clear conjunctiva; Negative nystagmus, scleral abnormality or cataract present Ears Ear: Positive hearing normal and external ears normal; Negative hard of hearing Nose Nose: Yes external nos (more content not included)... Normal [facility] CBC W Auto Differential pane l (Bld)on 12-18-2023 Basophils (Bld) [#/Vol] 0.12 10*3/uL High [facility] Basophils/100 WBC (Bld) 1.4 % [facility] Differential cell count method Nom (Bld) Auto [facility] Eosinophils (Bld) [#/Vol] 0.24 10*3/uL [facility] Eosinophils/100 WBC (Bld) 2.7 % [facility] Erythrocyte distribution width (RBC) [Ratio] 12.7 % 11.5 - 15.0 % [facility] Hematocrit (Bld) [Volume fraction] 49.1 % 39.0 - 51.0 % [facility] Hemoglobin (Bld) [Mass/Vol] 16.2 g/dL 13.0 - 17.0 g/dL [facility] Immature granulocytes (Bld) [#/Vol] 0.04 10*3/uL [facility] Immature granulocytes/100 WBC (Bld) 0.5 % [facility] Interpretation and review of laboratory results Abnormal [facility] Lymphocytes (Bld) [#/Vol] 2.89 10*3/uL [facility] Lymphocytes/100 WBC (Bld) 32.7 % [facility] MCH (RBC) [Entitic mass] 29.2 pg 26.0 - 34.0 pg [facility] MCHC (RBC) [Mass/Vol] 33.0 g/dL 30.5 - 36.0 g/dL [facility] MCV (RBC) [Entitic vol] 88.6 fL 80.0 - 100.0 fL [facility] Monocytes (Bld) [#/Vol] 1.03 10*3/uL High [facility] Monocytes/100 WBC (Bld) 11.6 % [facility] Neutrophils (Bld) [#/Vol] 4.53 10*3/uL [facility] Neutrophils/100 WBC (Bld) 51.1 % [facility] Nucleated RBC (Bld) [#/Vol] NINF [facility] Nucleated RBC/100 WBC (Bld) [Ratio] 0.0 % /100 WBC [facility] Platelet mean volume (Bld) [Entitic vol] 11.6 fL 9.0 - 12.7 fL [facility] Platelets (Bld) [#/Vol] 310 10*3/uL [facility] RBC (Bld) [#/Vol] 5.54 10*6/uL 4.20 - 6.0 0 m/uL [facility] WBC (Bld) [#/Vol] 8.85 10*3/uL [facility] Basophils (Bld) [#/Vol] 0.12 10*3/uL High <0.[address] [facility] Comment on above: Order Comment: Speci men Type: BLOOD SPECIMEN Ordering Facility: [facility] Address: [address] [place] [address] Performed By: #### 5 7021-8 #### [facility] CLIA [id number] [address] [place] [address] [place] Basophils/100 WBC (Bld) 1.4 % Normal [facility] Comment on above: Order Comment: Speci men Type: BLOOD SPECIMEN Ordering Facility: [facility] Address: [address] [place] [address] Performed By: #### 5 7021-8 #### [facility] CLIA [id number] [address] [place] [address] [place] Differential cell count method Nom (Bld) Auto Normal [facility] Comment on above: Order Comment: Speci men Type: BLOOD SPECIMEN Ordering Facility: [facility] Address: [address] [place] [address] Performed By: #### 5 7021-8 #### [facility] CLIA [id number] [address] [place] [address] [place] Eosinophils (Bld) [#/Vol] 0.24 10*3/uL Normal <0.[address] [facility] Comment on above: Order Comment: Speci men Type: BLOOD SPECIMEN Ordering Facility: [facility] Address: [address] [place] [address] Performed By: #### 5 7021-8 #### [facility] CLIA [id number] [address] [place] [address] [place] Eosinophils/100 WBC (Bld) 2.7 % Normal [facility] Comment on above: Order Comment: Speci men Type: BLOOD SPECIMEN Ordering Facility: [facility] Address: [address] [place] [address] Performed By: #### 5 7021-8 #### [facility] CLIA [id number] [address] [place] [address] [place] Erythrocyte distribution width (RBC) [Ratio] 12.7 % Normal 11.5-15.[address] [facility] Comment on above: Order Comment: Speci men Type: BLOOD SPECIMEN Ordering Facility: [facility] Address: [address] [place] [address] Performed By: #### 5 7021-8 #### [facility] CLIA [id number] [address] [place] [address] [place] Hematocrit (Bld) [Volume fraction] 49.1 % Normal 39.0-51.[address] [facility] Comment on above: Order Comment: Speci men Type: BLOOD SPECIMEN Ordering Facility: [facility] Address: [address] [place] [address] Performed By: #### 5 7021-8 #### [facility] CLIA [id number] [address] [place] [address] [place] Hemoglobin (Bld) [Mass/Vol] 16.2 g/dL Normal 13.0-17.[address] [facility] Comment on above: Order Comment: Speci men Type: BLOOD SPECIMEN Ordering Facility: [facility] Address: [address] [place] [address] Performed By: #### 5 7021-8 #### [facility] CLIA [id number] [address] [place] [address] [place] Immature granulocytes (Bld) [#/Vol] 0.04 10*3/uL Normal <0.[address] [facility] Comment on above: Order Comment: Speci men Type: BLOOD SPECIMEN Ordering Facility: [facility] Address: [address] [place] [address] Performed By: #### 5 7021-8 #### [facility] CLIA [id number] [address] [place] [address] [place] Immature granulocytes/100 WBC (Bld) 0.5 % Normal [facility] Comment on above: Order Comment: Speci men Type: BLOOD SPECIMEN Ordering Facility: [facility] Address: [address] [place] [address] Performed By: #### 5 7021-8 #### [facility] CLIA [id number] [address] [place] [address] [place] Lymphocytes (Bld) [#/Vol] 2.89 10*3/uL Normal 1.00-4.[address] [facility] Comment on above: Order Comment: Speci men Type: BLOOD SPECIMEN Ordering Facility: [facility] Address: [address] [place] [address] Performed By: #### 5 7021-8 #### [facility] CLIA [id number] [address] [place] [address] [place] Lymphocytes/100 WBC (Bld) 32.7 % Normal [facility] Comment on above: Order Comment: Speci men Type: BLOOD SPECIMEN Ordering Facility: [facility] Address: [address] [place] [address] Performed By: #### 5 7021-8 #### [facility] CLIA [id number] [address] [place] [address] [place] MCH (RBC) [Entitic mass] 29.2 pg Normal 26.0-34.[address] [facility] Comment on above: Order Comment: Speci men Type: BLOOD SPECIMEN Ordering Facility: [facility] Address: [address] [place] [address] Performed By: #### 5 7021-8 #### [facility] CLIA [id number] [address] [place] [address] [place] MCHC (RBC) [Mass/Vol] 33.0 g/dL Normal 30.5-36.[address] [facility] Comment on above: Order Comment: Speci men Type: BLOOD SPECIMEN Ordering Facility: [facility] Address: [address] [place] [address] Performed By: #### 5 7021-8 #### [facility] CLIA [id number] [address] [place] [address] [place] MCV (RBC) [Entitic vol] 88.6 fL Normal 80.0-100.[address] [facility] Comment on above: Order Comment: Speci men Type: BLOOD SPECIMEN Ordering Facility: [facility] Address: [address] [place] [address] Performed By: #### 5 7021-8 #### [facility] CLIA [id number] [address] [place] [address] [place] Monocytes (Bld) [#/Vol] 1.03 10*3/uL High <0.[address] [facility] Comment on above: Order Comment: Speci men Type: BLOOD SPECIMEN Ordering Facility: [facility] Address: [address] [place] [address] Performed By: #### 5 7021-8 #### [facility] CLIA [id number] [address] [place] [address] [place] Monocytes/100 WBC (Bld) 11.6 % Normal [facility] Comment on above: Order Comment: Speci men Type: BLOOD SPECIMEN Ordering Facility: [facility] Address: [address] [place] [address] Performed By: #### 5 7021-8 #### [facility] CLIA [id number] [address] [place] [address] [place] Neutrophils (Bld) [#/Vol] 4.53 10*3/uL Normal 1.45-7.[address] [facility] Comment on above: Order Comment: Speci men Type: BLOOD SPECIMEN Ordering Facility: [facility] Address: [address] [place] [address] Performed By: #### 5 7021-8 #### [facility] CLIA [id number] [address] [place] [address] [place] Neutrophils/100 WBC (Bld) 51.1 % Normal [facility] Comment on above: Order Comment: Speci men Type: BLOOD SPECIMEN Ordering Facility: [facility] Address: [address] [place] [address] Performed By: #### 5 7021-8 #### [facility] CLIA [id number] [address] [place] [address] [place] Nucleated RBC (Bld) [#/Vol] 10*3/uL Normal <0.[address] [facility] Comment on above: Order Comment: Speci men Type: BLOOD SPECIMEN Ordering Facility: [facility] Address: [address] [place] [address] Performed By: #### 5 7021-8 #### [facility] CLIA [id number] [address] [place] [address] [place] Nucleated RBC/100 WBC (Bld) [Ratio] 0.0 /100 WBC Normal [facility] Comment on above: Order Comment: Speci men Type: BLOOD SPECIMEN Ordering Facility: [facility] Address: [address] [place] [address] Performed By: #### 5 7021-8 #### [facility] CLIA [id number] [address] [place] [address] [place] Platelet mean volume (Bld) [Entitic vol] 11.6 fL Normal 9.0-12.[address] [facility] Comment on above: Order Comment: Speci men Type: BLOOD SPECIMEN Ordering Facility: [facility] Address: [address] [place] [address] Performed By: #### 5 7021-8 #### [facility] CLIA [id number] [address] [place] [address] [place] Platelets (Bld) [#/Vol] 310 10*3/uL Normal 150-[address] [facility] Comment on above: Order Comment: Speci men Type: BLOOD SPECIMEN Ordering Facility: [facility] Address: [address] [place] [address] Performed By: #### 5 7021-8 #### [facility] CLIA [id number] [address] [place] [address] [place] RBC (Bld) [#/Vol] 5.54 10*6/uL Normal 4.20-6.00 [facility] Comment on above: Order Comment: Speci men Type: BLOOD SPECIMEN Ordering Facility: [facility] Address: [address] [place] [address] Performed By: #### 5 7021-8 #### [facility] CLIA [id number] [address] [place] [address] [place] WBC (Bld) [#/Vol] 8.85 10*3/uL Normal 3.70-11.00 [facility] Comment on above: Order Comment: Speci men Type: BLOOD SPECIMEN Ordering Facility: [facility] Address: [address] [place] [address] Performed By: #### 5 7021-8 #### [facility] CLIA [id number] [address] [place] [address] [place] Comprehensive metabolic 2000 panelon 12-18-2023 Albumin [Mass/Vol] 3.9 g/dL 3.9 - 4.9 g/dL [facility] ALP [Catalytic activity/Vol] 92 U/L 38 - 113 U/L [facility] ALT [Catalytic activity/Vol] 56 U/L High 10 - 54 U/L [facility] Anion gap [Moles/Vol] 10 mmol/L 8 - 15 mmol/L [facility] AST [Catalytic activity/Vol] 31 U/L 14 - 40 U/L [facility] Bilirubin [Mass/Vol] 0.3 mg/dL 0.2 - 1.3 mg/dL [facility] Calcium [Mass/Vol] 8.9 mg/dL 8.5 - 10. 2 mg/dL [facility] Chloride [Moles/Vol] 103 mmol/L 98 - 107 mmol/L [facility] CO2 [Moles/Vol] 26 mmol/L 22 - 30 mmol/L [facility] Creatinine [Mass/Vol] 1.21 mg/dL 0.73 - 1.22 mg/dL [facility] GFR/1.73 sq M.predicted among non-blacks MDRD (S/P/Bld) [Vol rate/Area] 79 mL/min/{1.73_m2} - PINF [facility] Comment on above: Estimated Glomerular Filtration Rate (eGFR) is calculated using the 2020 CKD-EPI creatinine equation. This equation utilizes serum creatinine, sex, and age as parameters. The creatinine assay has traceable calibration to isotope dilution-mass spectrometry. Refer to KDIGO guidelines for clinical interpretation. In patients with unstable renal function, e.g. those with acute kidney injury, the eGFR may not accurately reflect actual GFR. Glucose [Mass/Vol] 108 mg/dL High 74 - 99 mg/dL [facility] Comment on above: The [place] Diabete s Association (ADA) provides guidance for cutoff values for fasting glucose and random glucose. The ADA defines fasting as no caloric intake for at least 8 hours. Fasting plasma glucose results between 100 to 125 mg/dL indicate increased risk for diabetes (prediabetes). Fasting plasma glucose results greater than or equal to 126 mg/dL meet the criteria for diagnosis of diabetes. In the absence of unequivocal hyperglycemia, results should be confirmed by repeat testing. In a patient with classic symptoms of hyperglycemia or hyperglycemic crisis, random plasma glucose results greater than or equal to 200 mg/dL meet the criteria for diagnosis of diabetes. Reference: Standards of Medical Care in Diabetes 2016, [place] Diabetes Association. Diabetes Care. 2016.39(Suppl 1). Interpretation and review of laboratory results Abnormal [facility] Potassium [Moles/Vol] 4.2 mmol/L 3.7 - 5.1 mmol/L [facility] Protein [Mass/Vol] 6.6 g/dL 6.3 - 8.0 g/dL [facility] Sodium [Moles/Vol] 139 mmol/L 136 - 144 mmol/L [facility] Urea nitrogen [Mass/Vol] 15 mg/dL 9 - 24 mg/dL [facility] Albumin [Mass/Vol] 3.9 g/dL Normal 3.9-4.9 [facility] Comment on above: Order Comment: Speci men Type: BLOOD SPECIMEN Ordering Facility: [facility] Address: [address] [place] [address] Performed By: #### 2 4323-8, 37053-5 #### [facility] CLIA [id number] [address] [place] [address] [place] ALP [Catalytic activity/Vol] 92 U/L Normal 38-[address] [facility] Comment on above: Order Comment: Speci men Type: BLOOD SPECIMEN Ordering Facility: [facility] Address: [address] [place] [address] Performed By: #### 2 4323-8, 72266-9 #### [facility] CLIA [id number] [address] [place] [address] [place] ALT [Catalytic activity/Vol] 56 U/L High 10-[address] [facility] Comment on above: Order Comment: Speci men Type: BLOOD SPECIMEN Ordering Facility: [facility] Address: [address] [place] [address] Performed By: #### 2 4323-8, 97932-3 #### [facility] CLIA [id number] [address] [place] [address] [place] Anion gap [Moles/Vol] 10 mmol/L Normal 8-[address] [facility] Comment on above: Order Comment: Speci men Type: BLOOD SPECIMEN Ordering Facility: [facility] Address: [address] [place] [address] Performed By: #### 2 4323-8, 11389-9 #### [facility] CLIA [id number] [address] [place] [address] [place] AST [Catalytic activity/Vol] 31 U/L Normal 14-[address] [facility] Comment on above: Order Comment: Speci men Type: BLOOD SPECIMEN Ordering Facility: [facility] Address: [address] [place], [place] [id number] Performed By: #### 2 4323-8, 37511-3 #### [facility] CLIA [id number] [address] [place] [address] [place] Bilirubin [Mass/Vol] 0.3 mg/dL Normal 0.2-1.[address] [facility] Comment on above: Order Comment: Speci men Type: BLOOD SPECIMEN Ordering Facility: [facility] Address: [address] [place] [address] Performed By: #### 2 4323-8, 27556-0 #### [facility] CLIA [id number] [address] [place] [address] [place] Calcium [Mass/Vol] 8.9 mg/dL Normal 8.5-10.2 [facility] Comment on above: Order Comment: Speci men Type: BLOOD SPECIMEN Ordering Facility: [facility] Address: [address] [place], [place] [address] Performed By: #### 2 4323-8, 11652-6 #### [facility] CLIA [id number] [address] [place], [place] [address] [place] Chloride [Moles/Vol] 103 mmol/L Normal 98-[address] [facility] Comment on above: Order Comment: Speci men Type: BLOOD SPECIMEN Ordering Facility: [facility] Address: [address] [place], [place] [address] Performed By: #### 2 4323-8, 53402-7 #### [facility] CLIA [id number] [address] [place] [address] [place] CO2 [Moles/Vol] 26 mmol/L Normal 22-[address] [facility] Comment on above: Order Comment: Kiki brown Type: BLOOD SPECIMEN Ordering Facility: [facility] Address: [address] [place] [address] Performed By: #### 2 4323-8, 25791-3 #### [facility] CLIA [id number] [address] [place] [address] [place] Creatinine [Mass/Vol] 1.21 mg/dL Normal 0.73-1.[address] [facility] Comment on above: Order Comment: Kiki brown Type: BLOOD SPECIMEN Ordering Facility: [facility] Address: [address] [place] [address] Performed By: #### 2 4323-8, 35277-1 #### [facility] CLIA [id number] [address] [place] [address] [place] Creatinine and Glomerular filtration rate.predicted panel (S/P/Bld) 79 mL/min/1.73m??? Normal >=[address] [facility] Comment on above: Order Comment: Kiki brown Type: BLOOD SPECIMEN Ordering Facility: [facility] Address: [address] [place] [address] Result Comment: Heike mated Glomerular Filtration Rate (eGFR) is calculated using the 2020 CKD-EPI creatinine equation. This equation utilizes serum creatinine, sex, and age as parameters. The creatinine assay has traceable calibration to isotope dilution-mass spectrometry. Refer to KDIGO guidelines for clinical interpretation. In patients with unstable renal function, e.g. those with acute kidney injury, the eGFR may not accurately reflect actual GFR. Performed By: #### 2 4323-8, 45259-2 #### [facility] CLIA [id number] [address] [place] [address] [place] Glucose [Mass/Vol] 108 mg/dL High 74-99 [facility] Comment on above: Order Comment: Kiki brown Type: BLOOD SPECIMEN Ordering Facility: [facility] Address: [address] [place] [address] Result Comment: The [place] Diabetes Association (ADA) provides guidance for cutoff values for fasting glucose and random glucose. The ADA defines fasting as no caloric intake for at least 8 hours. Fasting plasma glucose results between 100 to 125 mg/dL indicate increased risk for diabetes (prediabetes). Fasting plasma glucose results greater than or equal to 126 mg/dL meet the criteria for diagnosis of diabetes. In the absence of unequivocal hyperglycemia, results should be confirmed by repeat testing. In a patient with classic symptoms of hyperglycemia or hyperglycemic crisis, random plasma glucose results greater than or equal to 200 mg/dL meet the criteria for diagnosis of diabetes. Reference: Standards of Medical Care in Diabetes 2016, [place] Diabetes Association. Diabetes Care. 2016.39(Suppl 1). Performed By: #### 2 4323-8, 37025-8 #### [facility] CLIA [id number] [address] [place] [address] [place] Potassium [Moles/Vol] 4.2 mmol/L Normal 3.7-5.[address] [facility] Comment on above: Order Comment: Speci men Type: BLOOD SPECIMEN Ordering Facility: [facility] Address: [address] [place] [address] Performed By: #### 2 4323-8, 75214-6 #### [facility] CLIA [id number] [address] [place] [address] [place] Protein [Mass/Vol] 6.6 g/dL Normal 6.3-8.0 [facility] Comment on above: Order Comment: Speci men Type: BLOOD SPECIMEN Ordering Facility: [facility] Address: [address] [place] [address] Performed By: #### 2 4323-8, 11641-5 #### [facility] CLIA [id number] [address] [place] [address] [place] Sodium [Moles/Vol] 139 mmol/L Normal 136-144 [facility] Comment on above: Order Comment: Speci men Type: BLOOD SPECIMEN Ordering Facility: [facility] Address: [address] [place] [address] Performed By: #### 2 4323-8, 02337-8 #### [facility] CLIA [id number] [address] [place] [address] [place] Urea nitrogen [Mass/Vol] 15 mg/dL Normal 9-[address] [facility] Comment on above: Order Comment: Speci men Type: BLOOD SPECIMEN Ordering Facility: [facility] Address: [address] [place] [address] Performed By: #### 2 4323-8, 45484-2 #### [facility] CLIA [id number] [address] [place] [address] [place] Lipid 1996 panelon 4 Cholesterol [Mass/Vol] 186 mg/dL NINF - 200 mg/dL [facility] Comment on above: <200 mg/dL, Desirabl e 200-239 mg/dL, Borderline high >239 mg/dL, High Cholesterol in HDL [Mass/Vol] 42 mg/dL 39 - PINF mg/dL [facility] Comment on above: 40-59 mg/dL, Accepta ble >59 mg/dL, High: Negative risk factor for coronary heart disease <40 mg/dL, Low: Positive risk factor for coronary heart disease Cholesterol in LDL [Mass/Vol] 109 mg/dL High NINF - 100 mg/dL [facility] Comment on above: <100 mg/dL, Optimal 100-129 mg/dL, Near optimal/above optimal 130-159 mg/dL, Borderline high 160-189 mg/dL, High >189 mg/dL, Very high Secondary prevention optimal LDL Cholesterol levels are recommended to be < 70 mg/dL Cholesterol in LDL/Cholesterol in HDL [Mass ratio] 2.60 {ratio} High NINF - 2.54 [facility] Comment on above: Reference: 1. National Cholesterol Education Program ATP III Guideline At-A-Glance Quick Desk Reference: National Heart, Lung, and Blood [place]. National Institutes of Health. 2001: NIH Publication No. 01-3305. 2. An International Atherosclerosis Society position paper: global recommendations for the management of dyslipidemia: executive summary, Atherosclerosis. 2014: 232(2):410-413. Cholesterol in VLDL [Mass/Vol] 35 mg/dL High NINF - 30 mg/dL [facility] Cholesterol non HDL [Mass/Vol] 144 mg/dL High NINF - 130 mg/dL [facility] Comment on above: <130 mg/dL, Optimal 130-159 mg/dL, Near optimal/above optimal 160-189 mg/dL, Borderline high 190-219 mg/dL, High >219 mg/dL, Very high Secondary prevention optimal non HDL Cholesterol levels are recommended to be <100 mg/dL Cholesterol.total/C holesterol in HDL [Mass ratio] 4.43 {ratio} NINF - 5.10 [facility] Fasting Time 12 hrs [facility] Interpretation and review of laboratory results Abnormal [facility] Triglyceride [Mass/Vol] 173 mg/dL High NINF - 150 mg/dL [facility] Comment on above: <150 mg/dL, Normal 150-199 mg/dL, Borderline high 200-499 mg/dL, High >499 mg/dL, Very high [facility] Cholesterol [Mass/Vol] 186 mg/dL Normal <[address] [facility] Comment on above: Order Comment: Kiki brown Type: BLOOD SPECIMEN Ordering Facility: [facility] Address: [address] [place] [address] Result Comment: <200 mg/dL, Desirable 200-239 mg/dL, Borderline high >239 mg/dL, High Performed By: #### 2 4323-8, 20753-6 #### [facility] CLIA [id number] [address] [place] [address] [place] Cholesterol in HDL [Mass/Vol] 42 mg/dL Normal >[address] [facility] Comment on above: Order Comment: Kiki brown Type: BLOOD SPECIMEN Ordering Facility: [facility] Address: [address] [place] [address] Result Comment: 40-5 9 mg/dL, Acceptable >59 mg/dL, High: Negative risk factor for coronary heart disease <40 mg/dL, Low: Positive risk factor for coronary heart disease Performed By: #### 2 4323-8, 85683-8 #### [facility] CLIA [id number] [address] [place], [place] [address] [place] Cholesterol in LDL [Mass/Vol] 109 mg/dL High <[address] [facility] Comment on above: Order Comment: Kiki brown Type: BLOOD SPECIMEN Ordering Facility: [facility] Address: [address] [place] [address] Result Comment: <100 mg/dL, Optimal 100-129 mg/dL, Near optimal/above optimal 130-159 mg/dL, Borderline high 160-189 mg/dL, High >189 mg/dL, Very high Secondary prevention optimal LDL Cholesterol levels are recommended to be < 70 mg/dL Performed By: #### 2 4323-8, 97450-9 #### [facility] CLIA [id number] [address] [place] [address] [place] Cholesterol in LDL/Cholesterol in HDL [Mass ratio] 2.60 {ratio} High <2.[address] [facility] Comment on above: Order Comment: Kiki brown Type: BLOOD SPECIMEN Ordering Facility: [facility] Address: [address] [place] [address] Result Comment: Refe rence: 1. National Cholesterol Education Program ATP III Guideline At-A-Glance Quick Desk Reference: National Heart, Lung, and Blood [place]. National Institutes of Health. 2001: NIH Publication No. 01-3305. 2. An International Atherosclerosis Society position paper: global recommendations for the management of dyslipidemia: executive summary, Atherosclerosis. 2014: 232(2):410-413. Performed By: #### 2 4323-8, 85645-9 #### [facility] CLIA [id number] [address] [place] [address] [place] Cholesterol in VLDL [Mass/Vol] 35 mg/dL High <[address] [facility] Comment on above: Order Comment: Kiki brown Type: BLOOD SPECIMEN Ordering Facility: [facility] Address: [address] [place] [address] Performed By: #### 2 4323-8, 64428-0 #### [facility] CLIA [id number] [address] [place] [address] [place] Cholesterol non HDL [Mass/Vol] 144 mg/dL High <[address] [facility] Comment on above: Order Comment: Speci men Type: BLOOD SPECIMEN Ordering Facility: [facility] Address: [address] [place] [address] Result Comment: <130 mg/dL, Optimal 130-159 mg/dL, Near optimal/above optimal 160-189 mg/dL, Borderline high 190-219 mg/dL, High >219 mg/dL, Very high Secondary prevention optimal non HDL Cholesterol levels are recommended to be <100 mg/dL Performed By: #### 2 4323-8, 11240-8 #### [facility] CLIA [id number] [address] [place] [address] [place] Cholesterol.total/C holesterol in HDL [Mass ratio] 4.43 {ratio} Normal <5.[address] [facility] Comment on above: Order Comment: Speci men Type: BLOOD SPECIMEN Ordering Facility: [facility] Address: [address] [place] [address] Performed By: #### 2 4323-8, 99610-8 #### [facility] CLIA [id number] [address] [place] [address] [place] FASTING TIME 12 hrs Normal [facility] Comment on above: Order Comment: Speci men Type: BLOOD SPECIMEN Ordering Facility: [facility] Address: [address] [place] [address] Performed By: #### 2 4323-8, 15522-3 #### [facility] CLIA [id number] [address] [place] [address] [place] Triglyceride [Mass/Vol] 173 mg/dL High <[address] [facility] Comment on above: Order Comment: Speci men Type: BLOOD SPECIMEN Ordering Facility: [facility] Address: [address] [place] [address] Result Comment: <150 mg/dL, Normal 150-199 mg/dL, Borderline high 200-499 mg/dL, High >499 mg/dL, Very high Performed By: #### 2 4323-8, 08102-5 #### [facility] CLIA [id number] [address] [place] [address] [place] CNOVon 12-17-2023 CNOV Office Visit ([facility] ) CESAR HUSSEIN ([id number]) 1985 M Date Time Provider Department 12/17/23 7:40 AM IVETT MARTINES During your visit today, we recorded the following information about you: Pulse Respiration Blood pressure Weight 69/minute 16/minute 116/80 144.2 kg Ivett Martines APRN.MORTGAGE LOAN COORDINATOR 12/18/2023 9:58 PM Signed This is a 38 year old male who presents today with: Patient presents with: Follow Up Yearly Exam HISTORY OF PRESENT ILLNESS: Cesar Hussein is a 38 year old male. Patient presents with: Follow Up Yearly Exam Pt presents today for annual exam and to follow-up on medication. He feels that the lexapro is working well, but doesn't seem to be working as well as it once did. Questions if increasing dose may be beneficial. Lost his job. Going through a divorce. No SI/HI. REVIEW OF SYSTEMS GENERAL: No weight loss, malaise or fevers/chills HEENT: Negative for frequent or significant headaches, No changes in hearing or vision. Has noticed that he does notice that if he turns, it takes his vision a couple seconds to catch up. NECK: Negative for lumps, goiter, pain and significant neck swelling RESPIRATORY: Negative for cough, hemoptysis, wheezing, dyspnea or shortness of breath CARDIOVASCULAR: Negative leg swelling, orthopnea, or palpitations GI: No nausea, vomiting, or diarrhea/constipation. No hematochezia/melena. No heartburn or reflux symptoms. : No history of dysuria, frequency or incontinence MUSCULOSKELETAL: Negative for joint pain or swelling. SKIN: Negative for lesions, rash, and itching ENDOCRINE: Negative for cold or heat intolerance, polyuria, polydipsia and goiter NEURO: No history of headaches, syncope, paralysis, seizures or tremors Restrictive lung disease. Has been stable. Hasn't needed to see pulmonology for a few years. Chest pain. Notices moreso the vision change note above when he gets some pain in the left. Refers that hasn't had in a week. He will take some deep breaths that will help. Describes as sharp -- it feels like taking a needle and pricking. No associated symptoms. KLAUS Follows with Dr. Velasquez/jet haile. . Uses CPAP daily. No problems w/ cpap. PAST MEDICAL HISTORY: PAST MEDICAL HISTORY Diagnosis Date Abnormal EKG 11/27/2017 incomplete RBBB Asthma childhood PAST SURGICAL HISTORY Procedure Laterality Date ADENOIDECTOMY PRIMARY Adenoidectomy ARTHROSCOPY KNEE DIAGNOSTIC W/WO SYNOVIAL BX SPX Left 2007 Arthroscopy, knee left meniscus and ACL MYRINGOTOMY ASPIRAND/EUSTACHIAN TUBE NFLTJ ANES Myringotomy/tubes TONSILLECTOMY PRIMARY/SECONDARY Tonsillectomy ALLERGIES Patient has no known allergies. MEDICATIONS Current Outpatient Medications Medication Sig escitalopram oxalate (LEXAPRO) 10 mg tablet 1/2 pill daily X 1 week; then increase to a whole pill daily. No current facility-administered medications for this visit. FAMILY HISTORY Problem Relation Age of Onset Multiple Sclerosis Mother Breast Cancer Mother Coronary Artery Disease Father PA mid forties, second PA a few years later Colon Cancer Maternal Grandmother Diabetes Maternal Grandmother Diabetes Paternal Grandmother Social History Tobacco Use Smoking status: Former Types: Cigarettes Smokeless tobacco: Never Tobacco comments: very few times Substance Use Topics Alcohol use: Yes Comment: very occasional Drug use: No EXAM: BP 116/80 Pulse 69 Resp 16 Wt (!) 144.2 kg (318 lb) SpO2 95% BMI 42.15 kg/m? PHYSICAL EXAM: General Appearance: Well appearing, alert, in no acute distress, well-hydrated, well nourished.. Skin: Skin color, texture, turgor normal, no suspicious rashes or lesions. Head: Normocephalic, no masses, lesions, tenderness or abnormalities. Eyes: Anicteric sclera. Pupils are equally round and reactive to light. Extraocular movements are intact. . Ears: External ears normal, canals clear. Normal TMs bilaterally. Oropharynx: Lips, mucosa, and tongue normal, teeth and gums normal, oropharynx normal. Neck: Supple, no adenopathy; thyroid symmetric, normal size, no bruits. Lungs: Lungs clear to auscultation. No wheezing, rhonchi, rales.. Heart: RRR without murmur, gallop, or rubs. No ectopy. Pain reproducible in the left upper chest wall. Abdomen: Abdomen soft, non-tender. Bowel sounds normal. No masses, organomegaly. Extremities: No deformities, edema, skin discoloration, clubbing or cyanosis. Good capillary refill. . Neurologic: Gait normal. ASSESSMENT/PLAN: 1. Wellness examination - ICD9: V70.0, ICD10: Z00.00 (primary diagnosis) - LIPID PANEL BASIC - COMPLETE BLOOD COUNT AND DIFFERENTIAL - COMPREHENSIVE METABOLIC PANEL Health Promotion: - Eat healthy -- go to [employer] to get started - Have a yearly physical - Get at least 30 minutes of physical activity da (more content not included)... Normal [facility] CNOVon 05-13-2023 [facility] CESAR HUSSEIN ([id number]) 1985 M Date Time Provider Department 05/13/23 5:00 PM [facility] During your visit today, we recorded the following information about you: Pulse Respiration Blood pressure Weight 70/minute 16/minute 134/92 139.3 kg Ivett Martines APRN.MORTGAGE LOAN COORDINATOR 05/13/2023 5:57 PM Signed This is a 38 year old male who presents today with: Patient presents with: Discussion: Would like to discuss restarting zoloft or another type of medication HISTORY OF PRESENT ILLNESS: Cesar S Keenan is a 38 year old male. Patient presents with: Discussion: Would like to discuss restarting zoloft or another type of medication Pt presents today re anxiety and depression. Refers that he was on zoloft in the past -- has been off of it for 2 years. Didn't feel like it was working as well, even after a dose increase. Started going to counseling. Went some last year, but more consistent in March of this year. Suggested by counseling to consider restarting medication. Refers anxiety, depression, and he is paranoid. Going to counseling at [facility]. Has not taken anything other than zoloft. Would sometimes have some stomach aches with the zoloft , diarrhea, and loss of appetite. Depression evaluation: Sadness: yes Sleep: uses cpap. Mind is always going. Wakes up several times overnight. Interests/Hobbies: likes to golf -- trying to pick pulling machine tender again. Likes being outside. Playing with child. Guilt: everything. Always feels like someone is talking about him. Energy Levels: in the middle. Concentration: up and down Appetite: overeats when stressed. Physical: denies Suicidal/homicidal ideation: denies. PAST MEDICAL HISTORY: PAST MEDICAL HISTORY Diagnosis Date Abnormal EKG 11/27/2017 incomplete RBBB Asthma childhood PAST SURGICAL HISTORY Procedure Laterality Date ADENOIDECTOMY PRIMARY Adenoidectomy ARTHROSCOPY KNEE DIAGNOSTIC W/WO SYNOVIAL BX SPX Left 2006 Arthroscopy, knee left meniscus and ACL MYRINGOTOMY ASPIRAND/EUSTACHIAN TUBE NFLTJ ANES Myringotomy/tubes TONSILLECTOMY PRIMARY/SECONDARY Tonsillectomy ALLERGIES Patient has no known allergies. MEDICATIONS Current Outpatient Medications Medication Sig ofloxacin (FLOXIN) 0.3 % otic solution Use 5 Drops in both ears once daily. fluticasone (FLONASE) 50 mcg/actuation nasal spray Use 2 Sprays in each nostril once daily. Rinse mouth after use. No current facility-administered medications for this visit. FAMILY HISTORY Problem Relation Age of Onset Multiple Sclerosis Mother Breast Cancer Mother Coronary Artery Disease Father PA mid forties, second PA a few years later Colon Cancer Maternal Grandmother Diabetes Maternal Grandmother Diabetes Paternal Grandmother Social History Tobacco Use Smoking status: Former Types: Cigarettes Smokeless tobacco: Never Tobacco comments: very few times Substance Use Topics Alcohol use: Yes Comment: very occasional Drug use: No EXAM: BP 134/92 Pulse 70 Resp 16 Wt (!) 139.3 kg (307 lb) SpO2 95% BMI 40.69 kg/m? PHYSICAL EXAM: General Appearance: Well appearing, alert, in no acute distress, well-hydrated, well nourished.. Skin: Skin color, texture, turgor normal, no suspicious rashes or lesions. Head: Normocephalic, no masses, lesions, tenderness or abnormalities. Eyes: Anicteric sclera. Pupils are equally round and reactive to light. Extraocular movements are intact. . Ears: External ears normal, canals clear. Normal TMs bilaterally. Oropharynx: Lips, mucosa, and tongue normal, teeth and gums normal, oropharynx normal. Neck: Supple, no adenopathy; thyroid symmetric, normal size, no bruits. Lungs: Lungs clear to auscultation. No wheezing, rhonchi, rales.. Heart: RRR without murmur, gallop, or rubs. No ectopy. Neurologic: Gait normal. ASSESSMENT/PLAN: 1. Anxiety with depression - ICD9: 300.4, ICD10: F41.8 Discussed options. He would like to go ahead and start medication. Would like to try something other than sertraline. Will go ahead and start lexapro. Plan to recheck in 1 month -- sooner if needed. - ESCITALOPRAM 10 MG TABLET Discussed treatment plan and patient voices understanding. Patient's questions answered appropriately. Medications and potential side effects were discussed and patient voices understanding. Return to the office as scheduled or as needed for worsening/no improvement. Ivett Martines APRN.Ivett Deshpande APRN.ALICIA 05/13/2023 5:27 PM Signed Start the lexapro. 1/2 pill daily X 1 week; then increase to a whole pill daily. 2. Recheck in 1 month, sooner if needed. Referring Provider: SELF [200] Allergies As of Date: 05/13/2023 (No Known Allergies) Date Reviewed: 05/13/2023 Reviewed by: Jorge Redmond LPN - Fully Assessed Reason for Visit: Discussion [813] Cmt: W (more content not included)... Normal [facility] CNOVon 01-24-2023 CNOV Office Visit (FAMPWS ) KEENANCESAR [place] ([id number]) 1985 M Date Time Provider Department 01/24/23 2:40 PM Adam DURANT During your visit today, we recorded the following information about you: Temperature Pulse Respiration Blood pressure 98.2 degrees 82/minute 22/minute 130/82 Weight 140.2 kg Adam Durant PA-C 01/24/2023 8:42 PM Signed 38 year old male with c/o mychart appointment request Stated beginning January had minor cold which he thought was over in 3-4 days. Started feeling worse last started in bilateral hearing loss, then drainage from both ears that was brownish, now milky white. Having trouble hearing, sinus pressure which has resolved No fever, headache Coughing up a lot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 improved on Lexapro Management per outpatient providers Continue close follow up with primary care provider --KLAUS: uses PAP nightly --Labs reviewed: management per ordering providers December 2023: CMP (elevated ALT), Lipids Plan of care discussed with patient, all questions answered, they agree with plan of care. I reviewed all of the patient's medications and diagnoses listed in [facility]. Patient to return for follow up in one month. Medical decision making: Patient's medical conditions place them at a moderate risk of complications, morbidity, and mortality. No orders of the defined types were placed in this encounter. Problem List[4] Chai Ribeiro MD 09/09/2024 2:57 PM [1] No past medical history on file. [2] No past surgical history on file. [3] No family history on file. [4] Patient Active Problem List Diagnosis KLAUS (obstructive sleep apnea) documented in this encounter [facility] 09-09-2024 Note [facility] NON-SURGICAL WEIGHT LOSS MANAGEMENT PROGRAM PROGRESS NOTE INITIAL EVALUATION Patient: Cesar Hussein Date of : 1985 Service Date: 09/09/2024 Patient History/Assessment Summary: The patient is a pleasant 39 y.o. year old male, who is Height: 6' 2 (188 cm) tall with a weight of Weight: (!) 355 lb 3.2 oz (161 kg) pounds, resulting in a BMI of Body mass index is 45.6 kg/m?. kg/m2. They have been overweight for years. They have tried and failed multiple previous diet attempts and is now seeking non-surgical treatment. The patient does not have any acute complaints. PLAN ROS: I have reviewed New Patient Assessment Form with the Patient, which is located in the Analog [employer] Tab. History: Medical History[1] Surgical History[2] Family History[3] Social History Tobacco Use Smoking status: Not on file Smokeless tobacco: Not on file Substance Use Topics Alcohol use: Not on file This patient's excess weight is causing the following co-morbid conditions at this time:KLAUS with or without CPAP Current Meds Patient's Medications New Prescriptions No medications on file Previous Medications ESCITALOPRAM (LEXAPRO) 20 MG TABLET Take 20 mg by mouth daily. Modified Medications No medications on file Discontinued Medications No medications on file Physical Examination: BP (!) 150/103 Pulse 92 Resp 18 Ht 6' 2 (1.88 m) Wt (!) 355 lb 3.2 oz (161 kg) BMI 45.60 kg/m? Weight Metrics: Franklin Body Weight: Franklin Body Weight: 171 lb (77.6 kg) Excess Body Weight: General: Alert and oriented x 4, obese, no apparent distress. normocephalic and atraumatic No evidence of respiratory distress ambulatory without assistance Neurological: Nonfocal neurologic exam I reviewed all of the patient's medications and diagnoses listed in Epic. Current Diet Breakfast: granola bar Lunch: Saturday/Saturday: chicken chitra salad wrap or fast food Dinner: 6-7 PM After dinner: snacks Beverages: Water 2-3 16 ounces bottles Pop (4 cans of Pepsi Zero) Sweetened coffee Current Eating Behaviors The patient demonstrates the following behaviors as they relate to his eating:eats in response to stress Plan: --Obesity class III Diet and exercise (D/E) Diet recommendations provided to patient verbally and in the form of handouts; they understood and agreed with plan. Uninterested bariatric surgery Uninterested in an injectable anti obesity medication Discussed PO anti obesity medications, currently uninterested. Medication handout given Aspartame: increased risk of stroke and elevated blood pressure discussed Counseling handout given --Discussed blood pressure could decrease with weight loss, potentially resulting in dizziness/lightheadedness (which can result in fall/injury). Patient understood. Adequate hydration and follow up with PCP for abnormal blood pressures - patient understood and agreed. Elevated BP without diagnosis of HTN Blood pressure is elevated today. This was discussed with the patient. The patient states they feel well. They have no symptoms. Check blood pressure at home - he agrees Monitor for development of symptoms. Monitor BP closely. Follow with outpatient providers. Management per outpatient providers. --Discussed blood glucose could decrease with weight loss. Patient understood. They are aware of symptoms of hypoglycemia and treatment of hypoglycemia. Patient will follow up with their outpatient providers for diabetes management. --Anxiety/Depression: he states his anxiety and depression have improved on Lexapro Management per outpatient providers Continue close follow up with primary care provider --KLAUS: uses PAP nightly --Labs reviewed: management per ordering providers December 2023: CMP (elevated ALT), Lipids Plan of care discussed with patient, all questions answered, they agree with plan of care. I reviewed all of the patient's medications and diagnoses listed in Epic. Patient to return for follow up in one month. Medical decision making: Patient's medical conditions place them at a moderate risk of complications, morbidity, and mortality. No orders of the defined types were placed in this encounter. Problem List[4] Chai Ribeiro MD 09/09/2024 2:57 PM [1] No past medical history on file. [2] No past surgical history on file. [3] No family history on file. [4] Patient Active Problem List Diagnosis KLAUS (obstructive sleep apnea) [facility] 07-17-2024 Telephone encounter Note printed [facility] 07-17-2024 Miscellaneous Notes printed Name of Caller: Cesar Contact Reason for Appointment: Cesar sent in a web request requesting an appointment with Weight Management I'm looking at help with losing weight and keeping that weight. I've gotten to a point where it's out of control and I'm even on a CPAP machine at 39 years old. I just want some help. Called and spoke to patient, advised him that I will send a message to the office for scheduling. Please advise Office Name: Weight Management Medication Refills need, if any: N/A Medication Name: N/A documented in this encounter [facility] 07-16-2024 Telephone encounter Note Name of Caller: Cesar Contact Reason for Appointment: Cesar sent in a web request requesting an appointment with Weight Management I'm looking at help with losing weight and keeping that weight. I've gotten to a point where it's out of control and I'm even on a CPAP machine at 39 years old. I just want some help. Called and spoke to patient, advised him that I will send a message to the office for scheduling. Please advise Office Name: Weight Management Medication Refills need, if any: N/A Medication Name: N/A [facility] 04-30-2024 Telephone encounter Note The following approved medication requests have been transmitted electronically. Requested Prescriptions Pending Prescriptions Disp Refills escitalopram oxalate (LEXAPRO) 20 mg tablet 30 tablet 3 Sig: Take 1 tablet by mouth once daily. Idalia Storm APRN.CNP [facility] 04-30-2024 Miscellaneous Notes The following approved medication requests have been transmitted electronically. Requested Prescriptions Pending Prescriptions Disp Refills escitalopram oxalate (LEXAPRO) 20 mg tablet 30 tablet 3 Sig: Take 1 tablet by mouth once daily. Idalia Storm APRN.CNP Prescription Refill Information The patient has been identified by name and date of : Yes Caregiver verified no other encounters exist for this prescription request: Yes Caregiver confirmed with patient/requestor that no other refills are due, in the near future, with this provider at this time: Yes The last office visit in the department: 12/17/23 Does the patient have a future office visit with this provider/department: No Requested Prescriptions Pending Prescriptions Disp Refills escitalopram oxalate (LEXAPRO) 20 mg tablet 30 tablet 3 Sig: Take 1 tablet by mouth once daily. Taty Francois April 30, 2024 2:20 PM documented in this encounter [facility] 04-30-2024 Telephone encounter Note Prescription Refill Information The patient has been identified by name and date of : Yes Caregiver verified no other encounters exist for this prescription request: Yes Caregiver confirmed with patient/requestor that no other refills are due, in the near future, with this provider at this time: Yes The last office visit in the department: 12/17/23 Does the patient have a future office visit with this provider/department: No Requested Prescriptions Pending Prescriptions Disp Refills escitalopram oxalate (LEXAPRO) 20 mg tablet 30 tablet 3 Sig: Take 1 tablet by mouth once daily. Taty Francois April 30, 2024 2:20 PM [facility] 12-17-2023 Instructions Ivett Martines APRN.CNP - 12/17/2023 8:15 AM EST Increase the lexapro to 20 mg daily. Return for fastng labwork. Recheck in 1 month. Health Promotion: - Eat healthy -- go to [employer] to get started - Have a yearly physical - Get at least 30 minutes of physical activity daily - Get at least 7 to 8 hours of sleep each night - Reach and maintain a healthy weight - Get help to quit or don't start smoking - Limit alcohol use to one drink or less - Do not use illegal drugs or misuse prescription drugs - Wear a helmet when riding a bike and wear protective gear for sports - Wear a seatbelt in cars and not text and drive - Wear sunscreen documented in this encounter [facility] 12-17-2023 Note HNO ID: [id number] Author: IVETT MARTINES APRN.CNP Service: ? Author Type: Nurse Practitioner Type: Progress Notes Filed: 12/18/2023 21:58 Note Text: This is a 38 year old male who presents today with: Patient presents with: Follow Up Yearly Exam HISTORY OF PRESENT ILLNESS: Cesar Hussein is a 38 year old male. Patient presents with: Follow Up Yearly Exam Pt presents today for annual exam and to follow-up on medication. He feels that the lexapro is working well, but doesn't seem to be working as well as it once did. Questions if increasing dose may be beneficial. Lost his job. Going through a divorce. No SI/HI. REVIEW OF SYSTEMS GENERAL: No weight loss, malaise or fevers/chills HEENT: Negative for frequent or significant headaches, No changes in hearing or vision. Has noticed that he does notice that if he turns, it takes his vision a couple seconds to catch up. NECK: Negative for lumps, goiter, pain and significant neck swelling RESPIRATORY: Negative for cough, hemoptysis, wheezing, dyspnea or shortness of breath CARDIOVASCULAR: Negative leg swelling, orthopnea, or palpitations GI: No nausea, vomiting, or diarrhea/constipation. No hematochezia/melena. No heartburn or reflux symptoms. : No history of dysuria, frequency or incontinence MUSCULOSKELETAL: Negative for joint pain or swelling. SKIN: Negative for lesions, rash, and itching ENDOCRINE: Negative for cold or heat intolerance, polyuria, polydipsia and goiter NEURO: No history of headaches, syncope, paralysis, seizures or tremors Restrictive lung disease. Has been stable. Hasn't needed to see pulmonology for a few years. Chest pain. Notices moreso the vision change note above when he gets some pain in the left. Refers that hasn't had in a week. He will take some deep breaths that will help. Describes as sharp -- it feels like taking a needle and pricking. No associated symptoms. KLAUS Follows with Dr. Velasquez/jet haile. . Uses CPAP daily. No problems w/ cpap. PAST MEDICAL HISTORY: PAST MEDICAL HISTORY Diagnosis Date Abnormal EKG 11/27/2017 incomplete RBBB Asthma childhood PAST SURGICAL HISTORY Procedure Laterality Date ADENOIDECTOMY PRIMARY Adenoidectomy ARTHROSCOPY KNEE DIAGNOSTIC W/WO SYNOVIAL BX SPX Left 2006 Arthroscopy, knee left meniscus and ACL MYRINGOTOMY ASPIRAND/EUSTACHIAN TUBE NFLTJ ANES Myringotomy/tubes TONSILLECTOMY PRIMARY/SECONDARY Tonsillectomy ALLERGIES Patient has no known allergies. MEDICATIONS Current Outpatient Medications Medication Sig escitalopram oxalate (LEXAPRO) 10 mg tablet 1/2 pill daily X 1 week; then increase to a whole pill daily. No current facility-administered medications for this visit. FAMILY HISTORY Problem Relation Age of Onset Multiple Sclerosis Mother Breast Cancer Mother Coronary Artery Disease Father PA mid forties, second PA a few years later Colon Cancer Maternal Grandmother Diabetes Maternal Grandmother Diabetes Paternal Grandmother Social History Tobacco Use Smoking status: Former Types: Cigarettes Smokeless tobacco: Never Tobacco comments: very few times Substance Use Topics Alcohol use: Yes Comment: very occasional Drug use: No EXAM: BP 116/80 Pulse 69 Resp 16 Wt (!) 144.2 kg (318 lb) SpO2 95% BMI 42.15 kg/m? PHYSICAL EXAM: General Appearance: Well appearing, alert, in no acute distress, well-hydrated, well nourished.. Skin: Skin color, texture, turgor normal, no suspicious rashes or lesions. Head: Normocephalic, no masses, lesions, tenderness or abnormalities. Eyes: Anicteric sclera. Pupils are equally round and reactive to light. Extraocular movements are intact. . Ears: External ears normal, canals clear. Normal TMs bilaterally. Oropharynx: Lips, mucosa, and tongue normal, teeth and gums normal, oropharynx normal. Neck: Supple, no adenopathy; thyroid symmetric, normal size, no bruits. Lungs: Lungs clear to auscultation. No wheezing, rhonchi, rales.. Heart: RRR without murmur, gallop, or rubs. No ectopy. Pain reproducible in the left upper chest wall. Abdomen: Abdomen soft, non-tender. Bowel sounds normal. No masses, organomegaly. Extremities: No deformities, edema, skin discoloration, clubbing or cyanosis. Good capillary refill. . Neurologic: Gait normal. ASSESSMENT/PLAN: 1. Wellness examination - ICD9: V70.0, ICD10: Z00.00 (primary diagnosis) - LIPID PANEL BASIC - COMPLETE BLOOD COUNT AND DIFFERENTIAL - COMPREHENSIVE METABOLIC PANEL Health Promotion: - Eat healthy -- go to [employer] to get started - Have a yearly physical - Get at least 30 minutes of physical activity daily - Get at least 7 to 8 hours of sleep each night - Reach and maintain a healthy weight - Get help to quit or don't start smoking - Limit alcohol use to one drink or less - Do not use illegal drugs or misuse prescription drugs - Wear a helmet when ridi (more content not included)... [facility] 12-17-2023 History of Presen t illness Narrative This is a 38 year old male who presents today with: Patient presents with: Follow Up Yearly Exam HISTORY OF PRESENT ILLNESS: Cesar Hussein is a 38 year old male. Patient presents with: Follow Up Yearly Exam Pt presents today for annual exam and to follow-up on medication. He feels that the lexapro is working well, but doesn't seem to be working as well as it once did. Questions if increasing dose may be beneficial. Lost his job. Going through a divorce. No SI/HI. REVIEW OF SYSTEMS GENERAL: No weight loss, malaise or fevers/chills HEENT: Negative for frequent or significant headaches, No changes in hearing or vision. Has noticed that he does notice that if he turns, it takes his vision a couple seconds to catch up. NECK: Negative for lumps, goiter, pain and significant neck swelling RESPIRATORY: Negative for cough, hemoptysis, wheezing, dyspnea or shortness of breath CARDIOVASCULAR: Negative leg swelling, orthopnea, or palpitations GI: No nausea, vomiting, or diarrhea/constipation. No hematochezia/melena. No heartburn or reflux symptoms. : No history of dysuria, frequency or incontinence MUSCULOSKELETAL: Negative for joint pain or swelling. SKIN: Negative for lesions, rash, and itching ENDOCRINE: Negative for cold or heat intolerance, polyuria, polydipsia and goiter NEURO: No history of headaches, syncope, paralysis, seizures or tremors Restrictive lung disease. Has been stable. Hasn't needed to see pulmonology for a few years. Chest pain. Notices moreso the vision change note above when he gets some pain in the left. Refers that hasn't had in a week. He will take some deep breaths that will help. Describes as sharp -- it feels like taking a needle and pricking. No associated symptoms. KLAUS Follows with Dr. Velasquez/jet [facility]. . Uses CPAP daily. No problems w/ cpap. PAST MEDICAL HISTORY: PAST MEDICAL HISTORY Diagnosis Date Abnormal EKG 11/27/2017 incomplete RBBB Asthma childhood PAST SURGICAL HISTORY Procedure Laterality Date ADENOIDECTOMY PRIMARY <AGE 12 Adenoidectomy ARTHROSCOPY KNEE DIAGNOSTIC W/WO SYNOVIAL BX SPX Left 2006 Arthroscopy, knee left meniscus and ACL MYRINGOTOMY ASPIR&/EUSTACHIAN TUBE NFLTJ ANES Myringotomy/tubes TONSILLECTOMY PRIMARY/SECONDARY <AGE 12 Tonsillectomy ALLERGIES Patient has no known allergies. MEDICATIONS Current Outpatient Medications Medication Sig escitalopram oxalate (LEXAPRO) 10 mg tablet 1/2 pill daily X 1 week; then increase to a whole pill daily. No current facility-administered medications for this visit. FAMILY HISTORY Problem Relation Age of Onset Multiple Sclerosis Mother Breast Cancer Mother Coronary Artery Disease Father PA mid forties, second PA a few years later Colon Cancer Maternal Grandmother Diabetes Maternal Grandmother Diabetes Paternal Grandmother Social History Tobacco Use Smoking status: Former Types: Cigarettes Smokeless tobacco: Never Tobacco comments: very few times Substance Use Topics Alcohol use: Yes Comment: very occasional Drug use: No EXAM: BP 116/80 Pulse 69 Resp 16 Wt (!) 144.2 kg (318 lb) SpO2 95% BMI 42.15 kg/m PHYSICAL EXAM: General Appearance: Well appearing, alert, in no acute distress, well-hydrated, well nourished.. Skin: Skin color, texture, turgor normal, no suspicious rashes or lesions. Head: Normocephalic, no masses, lesions, tenderness or abnormalities. Eyes: Anicteric sclera. Pupils are equally round and reactive to light. Extraocular movements are intact. . Ears: External ears normal, canals clear. Normal TMs bilaterally. Oropharynx: Lips, mucosa, and tongue normal, teeth and gums normal, oropharynx normal. Neck: Supple, no adenopathy; thyroid symmetric, normal size, no bruits. Lungs: Lungs clear to auscultation. No wheezing, rhonchi, rales.. Heart: RRR without murmur, gallop, or rubs. No ectopy. Pain reproducible in the left upper chest wall. Abdomen: Abdomen soft, non-tender. Bowel sounds normal. No masses, organomegaly. Extremities: No deformities, edema, skin discoloration, clubbing or cyanosis. Good capillary refill. . Neurologic: Gait normal. ASSESSMENT/PLAN: 1. Wellness examination - ICD9: V70.0, ICD10: Z00.00 (primary diagnosis) - LIPID PANEL BASIC - COMPLETE BLOOD COUNT AND DIFFERENTIAL - COMPREHENSIVE METABOLIC PANEL Health Promotion: - Eat healthy -- go to [email or web address] to get started - Have a yearly physical - Get at least 30 minutes of physical activity daily - Get at least 7 to 8 hours of sleep each night - Reach and maintain a healthy weight - Get help to quit or don't start smoking - Limit alcohol use to one drink or less - Do not use illegal drugs or misuse prescription drugs - Wear a helmet when riding a bike and wear protective gear for sports - Wear a seatbelt in cars and not text and drive - Wear sunscreen 2. KLAUS (obstructive sleep apnea) - ICD9: 327.23, ICD10: G47.33 Compliant w/ cpap. Continue per pulm/sleep med. 3. Anxiety with depression - ICD9: 300.4, ICD10: F41.8 Increase. Recheck in 1 month. - ESCITALOPRAM 20 MG TABLET 4. Restrictive lung disease - ICD9: 518.89, ICD10: J98.4 Has been stable. 5. Mild coronary artery disease - ICD9: 414.00, ICD10: I25.10 Stable. - LIPID PANEL BASIC 6. Hyperlipidemia, mixed - ICD9: 272.2, ICD10: E78.2 - LIPID PANEL BASIC - COMPREHENSIVE METABOLIC PANEL 7. Encounter for immunization - ICD9: V03.89, ICD10: Z23 - INFLUENZA VACCINE, AGE 6MO-64YR, TRIVALENT (AFLURIA, FLULAVAL, FLUVIRIN, FLUZONE) Discussed treatment plan and patient voices understanding. Patient's questions answered appropriately. Medications and potential side effects were discussed and patient voices understanding. Return to the office as scheduled or as needed for worsening/no improvement. Ivett Martines APRN.MORTGAGE LOAN COORDINATOR documented in this encounter [facility] 09-03-2023 Telephone encounter Note Prescription Refill Information The patient has been identified by name and date of : Yes Caregiver verified no other encounters exist for this prescription request: Yes Caregiver confirmed with patient/requestor that no other refills are due, in the near future, with this provider at this time: Yes The last office visit in the department: 05/13/2023 Does the patient have a future office visit with this provider/department: No Requested Prescriptions Pending Prescriptions Disp Refills escitalopram oxalate (LEXAPRO) 10 mg tablet 30 tablet 2 Si/2 pill daily X 1 week; then increase to a whole pill daily. Idalia Aguirre LPN September 03, 2023 7:30 AM [facility] 09-03-2023 Miscellaneous Notes Prescription Refill Information The patient has been identified by name and date of : Yes Caregiver verified no other encounters exist for this prescription request: Yes Caregiver confirmed with patient/requestor that no other refills are due, in the near future, with this provider at this time: Yes The last office visit in the department: 05/13/2023 Does the patient have a future office visit with this provider/department: No Requested Prescriptions Pending Prescriptions Disp Refills escitalopram oxalate (LEXAPRO) 10 mg tablet 30 tablet 2 Si/2 pill daily X 1 week; then increase to a whole pill daily. Idalia Aguirre LPN September 03, 2023 7:30 AM documented in this encounter [facility] 05-13-2023 Instructions Ivett Martines APRN.ALICIA - 05/13/2023 5:27 PM EDT Start the lexapro. 1/2 pill daily X 1 week; then increase to a whole pill daily. 2. Recheck in 1 month, sooner if needed. documented in this encounter [facility] 05-13-2023 Note HNO ID: [id number] Author: IVETT MARTINES APRN.ALICIA Service: ? Author Type: Nurse Practitioner Type: Progress Notes Filed: 05/13/2023 17:57 Note Text: This is a 38 year old male who presents today with: Patient presents with: Discussion: Would like to discuss restarting zoloft or another type of medication HISTORY OF PRESENT ILLNESS: Cesar Hussein is a 38 year old male. Patient presents with: Discussion: Would like to discuss restarting zoloft or another type of medication Pt presents today re anxiety and depression. Refers that he was on zoloft in the past -- has been off of it for 2 years. Didn't feel like it was working as well, even after a dose increase. Started going to counseling. Went some last year, but more consistent in March of this year. Suggested by counseling to consider restarting medication. Refers anxiety, depression, and he is paranoid. Going to counseling at [facility]. Has not taken anything other than zoloft. Would sometimes have some stomach aches with the zoloft , diarrhea, and loss of appetite. Depression evaluation: Sadness: yes Sleep: uses cpap. Mind is always going. Wakes up several times overnight. Interests/Hobbies: likes to golf -- trying to pick pulling machine tender again. Likes being outside. Playing with child. Guilt: everything. Always feels like someone is talking about him. Energy Levels: in the middle. Concentration: up and down Appetite: overeats when stressed. Physical: denies Suicidal/homicidal ideation: denies. PAST MEDICAL HISTORY: PAST MEDICAL HISTORY Diagnosis Date Abnormal EKG 11/27/2017 incomplete RBBB Asthma childhood PAST SURGICAL HISTORY Procedure Laterality Date ADENOIDECTOMY PRIMARY Adenoidectomy ARTHROSCOPY KNEE DIAGNOSTIC W/WO SYNOVIAL BX SPX Left 2006 Arthroscopy, knee left meniscus and ACL MYRINGOTOMY ASPIRAND/EUSTACHIAN TUBE NFLTJ ANES Myringotomy/tubes TONSILLECTOMY PRIMARY/SECONDARY Tonsillectomy ALLERGIES Patient has no known allergies. MEDICATIONS Current Outpatient Medications Medication Sig ofloxacin (FLOXIN) 0.3 % otic solution Use 5 Drops in both ears once daily. fluticasone (FLONASE) 50 mcg/actuation nasal spray Use 2 Sprays in each nostril once daily. Rinse mouth after use. No current facility-administered medications for this visit. FAMILY HISTORY Problem Relation Age of Onset Multiple Sclerosis Mother Breast Cancer Mother Coronary Artery Disease Father PA mid forties, second PA a few years later Colon Cancer Maternal Grandmother Diabetes Maternal Grandmother Diabetes Paternal Grandmother Social History Tobacco Use Smoking status: Former Types: Cigarettes Smokeless tobacco: Never Tobacco comments: very few times Substance Use Topics Alcohol use: Yes Comment: very occasional Drug use: No EXAM: BP 134/92 Pulse 70 Resp 16 Wt (!) 139.3 kg (307 lb) SpO2 95% BMI 40.69 kg/m? PHYSICAL EXAM: General Appearance: Well appearing, alert, in no acute distress, well-hydrated, well nourished.. Skin: Skin color, texture, turgor normal, no suspicious rashes or lesions. Head: Normocephalic, no masses, lesions, tenderness or abnormalities. Eyes: Anicteric sclera. Pupils are equally round and reactive to light. Extraocular movements are intact. . Ears: External ears normal, canals clear. Normal TMs bilaterally. Oropharynx: Lips, mucosa, and tongue normal, teeth and gums normal, oropharynx normal. Neck: Supple, no adenopathy; thyroid symmetric, normal size, no bruits. Lungs: Lungs clear to auscultation. No wheezing, rhonchi, rales.. Heart: RRR without murmur, gallop, or rubs. No ectopy. Neurologic: Gait normal. ASSESSMENT/PLAN: 1. Anxiety with depression - ICD9: 300.4, ICD10: F41.8 Discussed options. He would like to go ahead and start medication. Would like to try something other than sertraline. Will go ahead and start lexapro. Plan to recheck in 1 month -- sooner if needed. - ESCITALOPRAM 10 MG TABLET Discussed treatment plan and patient voices understanding. Patient's questions answered appropriately. Medications and potential side effects were discussed and patient voices understanding. Return to the office as scheduled or as needed for worsening/no improvement. Ivett Martines APRN.[facility] 05-13-2023 History of Presen t illness Narrative This is a 38 year old male who presents today with: Patient presents with: Discussion: Would like to discuss restarting zoloft or another type of medication HISTORY OF PRESENT ILLNESS: Cesar Hussein is a 38 year old male. Patient presents with: Discussion: Would like to discuss restarting zoloft or another type of medication Pt presents today re anxiety and depression. Refers that he was on zoloft in the past -- has been off of it for 2 years. Didn't feel like it was working as well, even after a dose increase. Started going to counseling. Went some last year, but more consistent in March of this year. Suggested by counseling to consider restarting medication. Refers anxiety, depression, and he is paranoid. Going to counseling at [facility]. Has not taken anything other than zoloft. Would sometimes have some stomach aches with the zoloft , diarrhea, and loss of appetite. Depression evaluation: Sadness: yes Sleep: uses cpap. Mind is always going. Wakes up several times overnight. Interests/Hobbies: likes to golf -- trying to pick pulling machine tender again. Likes being outside. Playing with child. Guilt: everything. Always feels like someone is talking about him. Energy Levels: in the middle. Concentration: up and down Appetite: overeats when stressed. Physical: denies Suicidal/homicidal ideation: denies. PAST MEDICAL HISTORY: PAST MEDICAL HISTORY Diagnosis Date Abnormal EKG 11/27/2017 incomplete RBBB Asthma childhood PAST SURGICAL HISTORY Procedure Laterality Date ADENOIDECTOMY PRIMARY <AGE 12 Adenoidectomy ARTHROSCOPY KNEE DIAGNOSTIC W/WO SYNOVIAL BX SPX Left 2006 Arthroscopy, knee left meniscus and ACL MYRINGOTOMY ASPIR&/EUSTACHIAN TUBE NFLTJ ANES Myringotomy/tubes TONSILLECTOMY PRIMARY/SECONDARY <AGE 12 Tonsillectomy ALLERGIES Patient has no known allergies. MEDICATIONS Current Outpatient Medications Medication Sig ofloxacin (FLOXIN) 0.3 % otic solution Use 5 Drops in both ears once daily. fluticasone (FLONASE) 50 mcg/actuation nasal spray Use 2 Sprays in each nostril once daily. Rinse mouth after use. No current facility-administered medications for this visit. FAMILY HISTORY Problem Relation Age of Onset Multiple Sclerosis Mother Breast Cancer Mother Coronary Artery Disease Father PA mid forties, second PA a few years later Colon Cancer Maternal Grandmother Diabetes Maternal Grandmother Diabetes Paternal Grandmother Social History Tobacco Use Smoking status: Former Types: Cigarettes Smokeless tobacco: Never Tobacco comments: very few times Substance Use Topics Alcohol use: Yes Comment: very occasional Drug use: No EXAM: BP 134/92 Pulse 70 Resp 16 Wt (!) 139.3 kg (307 lb) SpO2 95% BMI 40.69 kg/m PHYSICAL EXAM: General Appearance: Well appearing, alert, in no acute distress, well-hydrated, well nourished.. Skin: Skin color, texture, turgor normal, no suspicious rashes or lesions. Head: Normocephalic, no masses, lesions, tenderness or abnormalities. Eyes: Anicteric sclera. Pupils are equally round and reactive to light. Extraocular movements are intact. . Ears: External ears normal, canals clear. Normal TMs bilaterally. Oropharynx: Lips, mucosa, and tongue normal, teeth and gums normal, oropharynx normal. Neck: Supple, no adenopathy; thyroid symmetric, normal size, no bruits. Lungs: Lungs clear to auscultation. No wheezing, rhonchi, rales.. Heart: RRR without murmur, gallop, or rubs. No ectopy. Neurologic: Gait normal. ASSESSMENT/PLAN: 1. Anxiety with depression - ICD9: 300.4, ICD10: F41.8 Discussed options. He would like to go ahead and start medication. Would like to try something other than sertraline. Will go ahead and start lexapro. Plan to recheck in 1 month -- sooner if needed. - ESCITALOPRAM 10 MG TABLET Discussed treatment plan and patient voices understanding. Patient's questions answered appropriately. Medications and potential side effects were discussed and patient voices understanding. Return to the office as scheduled or as needed for worsening/no improvement. Ivett Martines APRN.MORTGAGE LOAN COORDINATOR documented in this encounter [facility] 01-24-2023 Note HNO ID: [id number] Author: Adam Durant PA-C Service: ? Author Type: Physician [employer] Truck Driver Type: Progress Notes Filed: 01/24/2023 8:42 PM Note Text: 38 year old male with c/o mychart appointment request Stated beginning January had minor cold which he thought was over in 3-4 days. Started feeling worse last started in bilateral hearing loss, then drainage from both ears that was brownish, now milky white. Having trouble hearing, sinus pressure which has resolved No fever, headache Coughing up a lot yellowish-greenish mucus. Chest hurt from cough but has improved. No wheezing. Nausea from coughing up sputum, no diarrhea. HISTORIES FAMILY HISTORY Problem Relation Age of Onset Multiple Sclerosis Mother Breast Cancer Mother Coronary Artery Disease Father PA mid forties, second PA a few years later Colon Cancer Maternal Grandmother Diabetes Maternal Grandmother Diabetes Paternal Grandmother PAST MEDICAL HISTORY Diagnosis Date Abnormal EKG 11/27/2017 incomplete RBBB Asthma childhood PAST SURGICAL HISTORY Procedure Laterality Date ADENOIDECTOMY PRIMARY Adenoidectomy ARTHROSCOPY KNEE DIAGNOSTIC W/WO SYNOVIAL BX SPX Left 2007 Arthroscopy, knee left meniscus and ACL MYRINGOTOMY ASPIRAND/EUSTACHIAN TUBE NFLTJ ANES Myringotomy/tubes TONSILLECTOMY PRIMARY/SECONDARY Tonsillectomy Social History Tobacco Use Smoking status: Former Types: Cigarettes Smokeless tobacco: Never Tobacco comments: very few times Substance Use Topics Alcohol use: Yes Comment: very occasional Drug use: No ACTIVE PROBLEM LIST Hyperlipidemia, Mixed Obesity, Class II, Bmi 35-39.9 Other Chest Pain Restrictive Lung Disease No current outpatient medications on file. No current facility-administered medications for this visit. There are no preventive care reminders to display for this patient. EXAM: There were no vitals taken for this visit.BP 130/82 Pulse 82 Temp 36.8 ?C (98.2 ?F) Resp 22 Wt (!) 140.2 kg (309 lb) SpO2 97% BMI 40.95 kg/m? Pleasant obese man in no acute distress. Alert and oriented all spheres. Normal affect and cognition. Speech normal. No deficits to learning or comprehension. Skin warm, dry, pink to lips and nailbeds. Normal turgor. Respirations regular and unlabored. HEENT: NCAT. No scleral icterus or conjunctival injection. TM's clear. Nose and oropharynx free from injection or lesion. Oral membranes moist and pink. Small subtonsillar submandibular lymph nodes. Thyroid non-tender, no masses, or enlargement. Carotids pulses 2+/4+ without bruits. No JVD with HOB at 30 degrees. Chest is normal shape. Lungs are clear to all holder with good air exchange through out. HRRR without murmur or gallop. No lifts, heaves, or rubs. Extrem: no clubbing or cyanosis. Edema: none. Extremities are warm and pink with prompt capillary refill. ASSESSMENT/PLAN: 1. URI, acute - ICD9: 465.9, ICD10: J06.9 (primary diagnosis) - Discussed viral etiology and rationale for treatment. - Symptomatic treatment with prn analgesia - Supportive care with fluids and rest 2. Acute SUSIE (middle ear effusion), bilateral - ICD9: 381.00, ICD10: H65.193 See d/c instructions: stat meds If not improving, consult ENT. - OFLOXACIN 0.3 % EAR DROPS - FLUTICASONE PROPIONATE 50 MCG/ACTUATION NASAL SPRAY,SUSPENSION Adam Durant PA-C Some of this note may have been copied and pasted for the purpose of history context and comparison and has been adjusted for changes in prior data. Adam Durant PA-C [facility] Evaluation note Diagnosis Anxiety with depression- Primary [facility] Anxiety with depression [facility] Diagnosis Anxiety with depression [facility] Diagnosis Wellness examination- Primary KLAUS (obstructive sleep apnea) Obstructive sleep apnea (adult) (pediatric) Anxiety with depression Restrictive lung disease Other diseases of lung, not elsewhere classified Mild coronary artery disease Hyperlipidemia, mixed Mixed hyperlipidemia Encounter for immunization Need for other specified prophylactic vaccination against single bacterial disease [facility] Diagnosis Class 3 severe obesity due to excess calories in adult, unspecified BMI, unspecified whether serious comorbidity present- Primary Elevated BP without diagnosis of hypertension documented in this encounter [facility] Summary Purpose Family History No Family History Records FoundNo Family History Records FoundNo Family History Records FoundNo Family History Records FoundNo Family History Records FoundNo Family History Records FoundNo Family History Records FoundNo Family History Records Found Advance Directives No Advanced Directives Records FoundNo Advanced Directives Records FoundNo Advanced Directives Records FoundNo Advanced Directives Records FoundNo Advanced Directives Records FoundNo Advanced Directives Records FoundNo Advanced Directives Records FoundNo Advanced Directives Records Found Additional Source Comments (unrecognized sect ion and content) No Status Records FoundNo Status Records FoundNo Status Records FoundNo Status Records FoundNo Status Records FoundNo Status Records FoundNo Status Records FoundNo Status Records Found INFORMATION SOURCE (unrecogn ized section and content) DATE CREATED AUTHOR 08/01/2017 [facility] DATE CREATED AUTHOR AUTHOR'S ORGANIZ ATION 07/04/2018 [facility] ([place]) DATE CREATED AUTHOR AUTHOR'S ORGANIZ ATION 02/20/2020 [facility] DATE CREATED AUTHOR AUTHOR'S ORGANIZ ATION 11/21/2021 [facility] DATE CREATED AUTHOR AUTHOR'S ORGANIZ ATION 09/19/2022 [facility] DATE CREATED AUTHOR AUTHOR'S ORGANIZ ATION 12/23/[address] [facility] DATE CREATED AUTHOR AUTHOR'S ORGANIZ ATION 03/26/2024 [facility] DATE CREATED AUTHOR AUTHOR'S ORGANIZ ATION 09/11/2024 [facility] <item> Privacy Markings (unrecogniz ed section and content) Section Author: Zoya Monterroso PROHIBITION ON REDISCLOSURE OF CONFIDENTIAL INFORMATION This notice accompanies a disclosure of information concerning a client made to you with the consent of such client. Source Comments (unrecognize d section and content) In the event this informatio n is protected by the Federal Confidentiality of Alcohol and Drug Abuse Patient Records regulations: The Federal rules restrict any use of the information to criminally investigate or prosecute any alcohol or drug abuse patient.[facility] the event this information is protected by the Federal Confidentiality of Alcohol and Drug Abuse Patient Records regulations: The Federal rules restrict any use of the information to criminally investigate or prosecute any alcohol or drug abuse patient.[facility] the event this information is protected by the Federal Confidentiality of Alcohol and Drug Abuse Patient Records regulations: The Federal rules restrict any use of the information to criminally investigate or prosecute any alcohol or drug abuse patient.[facility] SystemIn the event this information is protected by the Federal Confidentiality of Alcohol and Drug Abuse Patient Records regulations: The Federal rules restrict any use of the information to criminally investigate or prosecute any alcohol or drug abuse patient.[facility] SystemIn the event this information is protected by the Federal Confidentiality of Alcohol and Drug Abuse Patient Records regulations: The Federal rules restrict any use of the information to criminally investigate or prosecute any alcohol or drug abuse patient.[facility] SystemIn the event this information is protected by the Federal Confidentiality of Alcohol and Drug Abuse Patient Records regulations: The Federal rules restrict any use of the information to criminally investigate or prosecute any alcohol or drug abuse patient.[facility] Care Teams (unrecognized sec tion and content) Business Services Specialist Sales Relationship Specialty Start Date End Date Adam Durant PA-C [address] [place] [address] PCP - General Family Medicine 03/15/15 Business Services Specialist Sales Relationship Specialty Start Date End Date Adam Durant PA-C [address] [place] [address] PCP - General Family Medicine 03/15/15 Business Services Specialist Sales Relationship Specialty Start Date End Date Adam Durant PA-C [address] [facility] [place], [place] [id number] PCP - General Family Medicine 03/15/15 Business Services Specialist Sales Relationship Specialty Start Date End Date Adam Durant PA-C [address] [facility] [place], [place] [id number] PCP - General Family Medicine 03/15/15 Business Services Specialist Sales Relationship Specialty Start Date End Date Ivett Martines, CARROT GRADER INSPECTOR.MORTGAGE LOAN COORDINATOR [address] [facility], [place] [address] PCP - General Family Medicine 12/17/23 Business Services Specialist Sales Relationship Specialty Start Date End Date Ivett Martines, CARROT GRADER INSPECTOR.MORTGAGE LOAN COORDINATOR [address] [facility], [place] [id number] PCP - General Family Medicine 12/17/23 Idalia Storm, CARROT GRADER INSPECTOR.MORTGAGE LOAN COORDINATOR [address] [facility] [place], [place] [address] Social Work Assistant Family Medicine 01/19/24 Su Urrutia MD [address] [facility] [place], [place] [id number] Social Work Assistant Family Medicine 01/19/24 Business Services Specialist Sales Relationship Specialty Start Date End Date System, Provider Not In DO NOT CHANGE DO NOT CHANGE, [place] PCP - General 08/04/24 Reason for Visit (unrecogniz ed section and content) Reason Comments Discussion Would like to discus s restarting zoloft or another type of medication Reason Onset Date Comments Refill Request 09/02/2023 Reason Onset Date Comments Refill Request 11/09/2023 Reason Comments Follow Up Yearly Exam Reason Onset Date Comments Refill Request 04/30/2024 Reason Onset Date Comments New Patient 07/16/2024 Reason Comments Weight Loss NSURG NEW Specialty Diagnoses / Procedures Referred By Contleon t Referred To Contact Weight Management Diagnoses Morbid (severe) obesity due to excess calories (HCC) Procedures Eval & Treat [facility] - [address] [place] [address] Phone: tel: fax: Referral ID Status Reason Start Date Expiration Date V isits Requested Visits Authorized [id number] Pending Review 07/20/2024 01/16/2025 1 1 FOR RECORDS PERTAINING TO PATIENTS WHO ARE OR HAVE BEEN ENROLLED IN A CHEMICAL DEPENDENCY/SUBSTANCEABUSE PROGRAM, SOME INFORMATION MAY BE OMITTED. This clinical summary was aggregated from multiple sources. Caution should be exercised in using it in the provision of clinical care. This summary normalizes information from multiple sources, and as a consequence, information in this document may materially change the coding, format and clinical context of patient data. In addition, data may be omitted in some cases. CLINICAL DECISIONS SHOULD BE BASED ON THE PRIMARY CLINICAL RECORDS. [employer] provides no warranty or guarantee of the accuracy or completeness of information in this document.
[2024-10-02 03:23] LABS: Hematocrit 45.9 % (40-54); Hemoglobin 15.7 g/dL (13.0-16.5); Immature Granulocytes Count 0.060 X10^3/uL (0.0-0.0); Mean Corp Hgb Conc 34.2 g/dL (32-36); Mean Corpuscular Volume 85.8 fL (80-94); Mean Platelet Vol. 10.8 fl (6.2-12.0); NRBC Flagged by Analyzer 0 % (0-5); Platelet Count 290 K/mm3 (150-450); RBC Distribution Width CV 12.6 % (11.6-14.6); RBC Distribution Width SD 39.0 fl (35.1-43.9); Red Blood Count 5.35 M/mm3 (4.6-6.2); White Blood Count 15.1 K/mm3 (4.4-11.0)
[2024-10-02] MEDS: 0.9% Normal Saline (1000mL) 1,000 ML 999 ML IV (03:23)
[2024-10-02] MEDS: Ketorolac 30 MG/ML Syringe IV (03:23)
--- NOTE | 2024-10-02 03:30 | CT_ITS ---
PROCEDURE: ABDOMEN/PELVIS WITHOUT CONT 10/02/2024 REASON FOR EXAM: RIGHT FLANK PAIN TECHNIQUE: ABDOMEN/PELVIS WITHOUT CONT Noncontrast technique limits evaluation of the abdominal and pelvic viscera. Coronal and Sagittal reconstruction series were provided. One or more dose reduction techniques were used (e.g., Automated exposure control, adjustment of the mA and/or kV according to patient size, use of iterative reconstruction technique). RADIATION DOSE SUMMARY: CTDlvol: 24.18 mGy DLP: 1467 mGycm COMPARISON: None. FINDINGS: Impacted appendicolith at the base of the diffusely thickened enlarged appendix. The largest transverse dimension of the appendix measures 1.3 cm with prominent surrounding inflammatory fat stranding suggestive of acute appendicitis without perforation or abscess formation. Scattered calcified splenic granulomas. 8 mm benign chronic calcified nodule in the left lower lobe. No follow-up is needed. The remaining visualized lung bases are unremarkable. Normal unenhanced liver. Normal gallbladder and extrahepatic biliary system. Normal unenhanced spleen. Normal pancreas. Normal bilateral adrenal glands. Normal size of the right kidney. There is no right renal mass. There are no right renal calculi. There is no right hydronephrosis. Normal visualized right ureter. Normal size of the left kidney. There is no left renal mass. There are no left renal calculi. There is no left hydronephrosis. Normal visualized left ureter. Normal visualized stomach. Normal small intestine. Normal colon. There is no demonstrated peritoneal fluid. Normal abdominal aorta. Normal inferior vena cava. Normal retroperitoneum. Normal urinary bladder. There is no pelvic mass lesion or lymphadenopathy. There is no pelvic fluid. Normal abdominal wall. Normal osseous structures. CT/Abdomen/Pelvis without Cont IMPRESSION: Impacted appendicolith at the base of the diffusely thickened enlarged appendix . The largest transverse dimension of the appendix measures 1.3 cm with prominent surrounding inflammatory fat stranding suggestive of acute appendicitis without perforation or abscess formation. Reading Location: [facility]
[2024-10-02] MEDS: Piperacil/Tazobactam 3.375 GM in 0.9% Normal Saline (50mL MB+) 50 ML IV ×2 (03:56→13:53)
[2024-10-02 04:04] LABS: Anion Gap 14 (5-15); BUN 15 mg/dL (4-19); BUN/Creat Ratio 12.3 RATIO (10-20); Calcium,Total 8.7 mg/dL (7.6-11.0); Carbon Dioxide 22.0 mmol/L (21.0-32.0); Chloride 102 mmol/L (98-108); Estimated Creatinine Clearance 128.49 ml/min (50-250); Glucose 129 mg/dL (70-99); Potassium 4.0 mmol/L (3.3-5.1)
--- NOTE | 2024-10-02 04:37 | EX.ED.DYSGE1 ---
HPI History of Present Illness Chief Complaint: Abd Pain Informant: patient Narrative Narrative: Patient is a 39-year-old male with past medical history of hypertension obstructive sleep apnea and anxiety. He states that around noon on he noticed vague pain in the right side of his abdomen. He states there was no recent trauma or excessive activity. He states that he did not think much of it and continued about his day. However as time passed the pain continued to worsen. He states that he developed subjective fevers and chills. That the pain seemed to be more intense and radiating towards his groin. He reports that there was dark urine but he denies any dysuria or hematuria. He states he has had mild nausea associated with this. He reports he went to bed as the pain was not improving but could never get comfortable or fall asleep. He states the pain continued to worsen and therefore as this been over 12 hours without any improvement he presents for evaluation [facility] Medical History (Updated 10/02/24 @ 06:[address] Lyndon Mayes MD) Bronchitis Asthma Anxiety Hypertension Abnormal EKG Chest pain Home Medications ?Medication ?Instructions ?Recorded ?Last Taken ?Type escitalopram oxalate 20 mg tablet 20 mg PO DAILY 03/24/24 Unknown History Allergy/AdvReac Type Severity Reaction Status Date / Time No Known Allergies Allergy Verified 10/02/24 02:57 Family History Father CAD (coronary artery disease) Myocardial infarction, Onset Age: 35 Mother CAD (coronary artery disease) Myocardial infarction, Onset Age: 40 Tobacco use Surgical History History of left knee surgery History of left heart catheterization (10/18/17) Social History Smoking Status: Never smoker second hand exposure: No alcohol intake: current alcohol intake frequency: a few times a month Alcohol type: beer substance use type: does not use caffeine: Yes Type: carbonated beverages Number of servings: 1 and coffee Number of servings: 2 ROS ROS ED Constitutional Constitutional ED: Reports chills, fever(s) and subjective ENT ENT ED: Denies sore throat Cardiovascular Cardiovascular: Denies chest pain Respiratory/Chest Respiratory/Chest: Denies cough or dyspnea Gastrointestinal Gastrointestinal: Reports abdominal pain and nausea; Denies diarrhea or vomiting Genitourinary Genitourinary ED: Denies dysuria or hematuria Musculoskeletal Musculoskeletal: Denies myalgias Integumentary Denies rash Neurologic Neurologic: Denies headache(s) Hematologic/Lymphatic Hematologic/Lymphatic: Denies easy bleeding or easy bruising EXAM Physical Exam Const Vital Signs: 10/02/24 02:52 10/02/24 02:56 10/02/24 03:56 Temperature 98.3 F 98.3 F 98.5 F Temperature Source Oral Oral Oral Pulse Rate 97 95 82 Respiratory Rate 18 18 18 Blood Pressure 134/94 H 134/94 H 171/90 H Blood Pressure Mean 107 107 117 Pulse Ox 97 96 95 Oxygen Delivery Method Room Air Room Air Room Air 10/02/24 04:00 10/02/24 05:00 10/02/24 06:00 Temperature 98.5 F 98.5 F 98.5 F Temperature Source Oral Oral Oral Pulse Rate 86 81 78 Respiratory Rate 18 18 18 Blood Pressure 171/90 H 130/78 H 137/89 H Blood Pressure Mean 117 95 105 Pulse Ox 95 96 96 Oxygen Delivery Method Room Air Room Air Room Air Positive well nourished, well developed and obese General Appearance ED: well developed; Negative for pallor Nutritional Appearance: obese HEENT HEENT Narrative: Normocephalic atraumatic Eyes PERRL and EOMs intact bilaterally General Eye ED: Negative for scleral icterus Neck supple Resp normal respiratory effort and clear to auscultation bilaterally Cardio regular rate and regular rhythm Rate: other Other Details: Heart is regular rate and rhythm without murmurs rubs or gallops Radial and carotid pulses are equal and symmetric GI non-distended and no masses GI Narrative: Abdomen is soft and nondistended with normal active bowel sounds. Patient has pain with palpation along the lateral right side of the abdomen diffusely. There is voluntary guarding in these locations. There is pain over McBurney's point as well. However there is no heel strike psoas or obturator sign present. No peritoneal signs. No rigidity. No pulsatile mass or fluid wave. Auscultation: normoactive bowel sounds Palpation: soft Back/Spine Back/Spine Narrative: Positive right CVA pain noted Extremity normal to inspection Neuro oriented x3, CN's II-XII intact bilaterally and no sensory deficits noted Sensorium / Orientation: alert Motor Exam: strength 5/5 throughout Psych mental status grossly normal Skin no rashes or lesions noted Skin Narrative: No overlying soft tissue changes to suggest trauma or infection General Skin Exam: Negative for jaundice or pallor MDM MDM MDM Narrative Medical decision making narrative: Patient arrived to ER mildly hypertensive but has a past medical history of this. He reported over 12 hours of increasing right sided abdominal pain. He states the pain was more sharp and radiated towards his groin. Differential diagnosis is for kidney stone versus UTI versus pyelonephritis versus appendicitis versus biliary colic or acute pancreatitis. With the patient having right CVA pain and diffuse the lateral right sided abdominal pain there is higher likelihood for potential kidney stone or atypical appendicitis as there is also pain over McBurney's point but patient does not have a positive heel strike psoas or obturator sign. Therefore I elected to perform a CBC basic metabolic and urine sample and a noncontrast CT. patient's white count is elevated at 15 and there is left shift with his neutrophil count increasing to 11.5. However he is afebrile and borderline hypertensive going against sepsis. The CT scan revealed no sign of kidney stone but it did show an appendicolith with dilated and inflamed appendix consistent with acute appendicitis. The patient was started on Zosyn secondary to this. The case was then discussed with general surgeon Dr. Mayes. He will be in the ER to see the patient with plan to admit the patient to his service and perform appendectomy later today. This plan of care was discussed with the patient and he is agreeable to it History & Record Review Discussion w/independent historian: Patient Lab Data Attestation: I reviewed the patient's lab results. Labs: Laboratory Results - last 24 hr 10/02/24 03:16 WBC 15.1 H RBC 5.35 Hgb 15.7 Hct 45.9 MCV 85.8 MCH 29.3 MCHC 34.2 RDW Std Deviation 39.0 RDW Coeff of Alice 12.6 Plt Count 290 MPV 10.8 Immature Gran % (Auto) 0.400 Neut % (Auto) 76.6 H Lymph % (Auto) 13.[address] [facility] % (Auto) 8.4 Eos % (Auto) 0.5 Baso % (Auto) 0.6 Absolute Neuts (auto) 11.5 H Absolute Lymphs (auto) 2.04 Nucleated RBC % 0 Sodium 138 Potassium 4.0 Chloride 102 Carbon Dioxide 22.0 Anion Gap 14 BUN 15 Creatinine 1.24 H Estim Creat Clear Calc 128.49 Est GFR (MDRD) Non-Af 76 BUN/Creatinine Ratio 12.3 Glucose 129 H Calcium 8.7 Radiography Diagnostic Testing: Clinical Impression(s) from Imaging Studies Abdomen/Pelvis CT 10/02/24 03:30 IMPRESSION: Impacted appendicolith at the base of the diffusely thickened enlarged appendix. The largest transverse dimension of the appendix measures 1.3 cm with prominent surrounding inflammatory fat stranding suggestive of acute appendicitis without perforation or abscess formation. 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
--- NOTE | 2024-10-02 06:55 | PCM.HP.STD ---
HPI - General HPI Narrative NORRIS HUSSEIN, is a 39 M who presents with abdominal pain that started yesterday. Patient reports yesterday around noon he started having abdominal pain in the right lower quadrant. He has nausea and chills but no vomiting or fevers. [facility] Medical History (Updated 10/02/24 @ 06:[address] Lyndon Mayes MD) Bronchitis Asthma Anxiety Hypertension Abnormal EKG Chest pain Home Medications ?Medication ?Instructions ?Recorded ?Last Taken ?Type escitalopram oxalate 20 mg tablet 20 mg PO DAILY 03/24/24 Unknown History Allergy/AdvReac Type Severity Reaction Status Date / Time No Known Allergies Allergy Verified 10/02/24 02:57 Family History Father CAD (coronary artery disease) Myocardial infarction, Onset Age: 35 Mother CAD (coronary artery disease) Myocardial infarction, Onset Age: 40 Tobacco use Surgical History History of left knee surgery History of left heart catheterization (10/18/17) Social History Smoking Status: Never smoker second hand exposure: No alcohol intake: current alcohol intake frequency: a few times a month Alcohol type: beer substance use type: does not use caffeine: Yes Type: carbonated beverages Number of servings: 1 and coffee Number of servings: 2 Vital Signs Vital Signs Vital Signs: 10/02/24 02:52 10/02/24 02:56 10/02/24 03:56 Temperature 98.3 F 98.3 F 98.5 F Temperature Source Oral Oral Oral Pulse Rate 97 95 82 Respiratory Rate 18 18 18 Blood Pressure 134/94 H 134/94 H 171/90 H Blood Pressure Mean 107 107 117 Pulse Ox 97 96 95 Oxygen Delivery Method Room Air Room Air Room Air 10/02/24 04:00 10/02/24 05:00 10/02/24 06:00 Temperature 98.5 F 98.5 F 98.5 F Temperature Source Oral Oral Oral Pulse Rate 86 81 78 Respiratory Rate 18 18 18 Blood Pressure 171/90 H 130/78 H 137/89 H Blood Pressure Mean 117 95 105 Pulse Ox 95 96 96 Oxygen Delivery Method Room Air Room Air Room Air Weight Weight: 346 lb 9.067 oz Body Mass Index (BMI) 43.3 Physical Exam Const oriented x3 and no apparent distress Resp normal respiratory effort Cardio regular rate and regular rhythm GI soft to palpation Palpation: tender RLQ Results Lab / Micro Data 10/02/24 03:16 10/02/24 03:16 Labs: Laboratory Results - last 24 hr 10/02/24 03:16: WBC 15.1 H, RBC 5.35, Hgb 15.7, Hct 45.9, MCV 85.8, MCH 29.3, MCHC 34.2, RDW Std Deviation 39.0, RDW Coeff of Alice 12.6, Plt Count 290, MPV 10.8, Immature Gran % (Auto) 0.400, Neut % (Auto) 76.6 H, Lymph % (Auto) 13.5 L, [place] % (Auto) 8.4, Eos % (Auto) 0.5, Baso % (Auto) 0.6, Absolute Neuts (auto) 11.5 H, Absolute Lymphs (auto) 2.04, Nucleated RBC % 0, Sodium 138, Potassium 4.0, Chloride 102, Carbon Dioxide 22.0, Anion Gap 14, BUN 15, Creatinine 1.24 H, Estim Creat Clear Calc 128.49, Est GFR (MDRD) Non-Af 76, BUN/Creatinine Ratio 12.3, Glucose 129 H, Calcium 8.7 Imaging Radiology Impression Abdomen/Pelvis CT 10/02/24 03:30 IMPRESSION: Impacted appendicolith at the base of the diffusely thickened enlarged appendix. The largest transverse dimension of the appendix measures 1.3 cm with prominent surrounding inflammatory fat stranding suggestive of acute appendicitis without perforation or abscess formation. Reading Location[facility] Assessment & Plan Assessment/Plan (1) Acute appendicitis: QUALIFIERS: Acute appendicitis type: unspecified acute appendicitis type Qualified Code(s): K35.80 - Unspecified acute appendicitis PLAN: The patient has a CT scan that shows acute appendicitis. There is stranding in the right lower quadrant with appendicolith. Patient also has elevated white count and right lower quadrant pain. I discussed laparoscopic appendectomy with the patient in detail. I discussed the risks including but not limited to bleeding, infection, injury to other organs such as the bowel, bladder, ureter. I also discussed the possibility of ileocecectomy and open surgery. Patient agrees and is willing to proceed. Patient is being given antibiotics and I will admit him to the floor until surgery. Lyndon Mayes MD Pager: [facility] [address] [place] [address] [address] [place] [phone] Office:
--- NOTE | 2024-10-02 08:37 | EKG12_ITS ---
Test Reason : PRE-OP Blood Pressure : */* mmHG Vent. Rate : 77 BPM Atrial Rate : 77 BPM P-R Int : 132 ms QRS Dur : 126 ms QT Int : 382 ms P-R-T Axes : 22 35 91 degrees QTcB Int : 432 ms Normal sinus rhythm Non-specific intra-ventricular conduction block T wave abnormality, consider anterolateral ischemia Abnormal ECG Confirmed by CRISTI CARLSON, YESSI ([id number]), medical transcription editor NIRU BENITEZ ([id number]) on 10/06/2024 6:10:21 AM Referred By: Confirmed By: YESSI COLIN MD
[2024-10-02] MEDS: 0.9% Normal Saline (1000mL) 1,000 ML 100 ML IV ×2 (08:46→10:39)
--- NOTE | 2024-10-02 10:33 | PCM.PRE.AN2 ---
ASA Classification* ASA Classification ASA Classification: 3 and E Assessment & Plan Anesthesia* Anesthesia Assessment Anesthesia Assessment: Discussed sedation and/or anesthesia options, risks, benefits, and alternatives with patient/parents/legal guardian/POA. Questions invited. The patient/parents/legal guardian/POA seems to understand and agrees to proceed with anesthesia plan. Reviewed the physical assessment, medical history, allergy history and patient home medications list prior to surgery/procedure/anesthetic and documented any changes. Performed airway and anesthesia risk assessments. Anesthesia Type Anesthesia Type: General History Source History Obtained from:: Patient and Chart Anesthesia Focused Assessment* Temperature: 98.8 F Pulse Rate: 82 Blood Pressure: 154/93 Respiratory Rate: 16 Pulse Ox: 96 Oxygen Delivery Method: Room Air Airway Assessment Mouth opens: 2 cm Mallampati Score: IV Teeth Condition: Intact Neck Range of motion (ROM): Limited ROM (Slight Decrease) Labs Anesthesia Preop lab: CBC WBC 15.1 K/mm3 (4.4-11.0) H 10/02/24 03:16 10/02/24 RBC 5.35 M/mm3 (4.6-6.2) 10/02/24 03:16 10/02/24 Hgb 15.7 g/dL (13.0-16.5) 10/02/24 03:16 10/02/24 Hct 45.9 % (40-54) 10/02/24 03:16 10/02/24 Plt Count 290 K/mm3 (150-450) 10/02/24 03:16 10/02/24 CHEMISTRY Potassium 4.0 mmol/L (3.3-5.1) 10/02/24 03:16 10/02/24 Sodium 138 mmol/L (133-145) 10/02/24 03:16 10/02/24 BUN 15 mg/dL (4-19) 10/02/24 03:16 10/02/24 Creatinine 1.24 mg/dL (0.70-1.20) H 10/02/24 03:16 10/02/24 Glucose 129 mg/dL (70-99) H 10/02/24 03:16 10/02/24 COAG PT 14.8 SECONDS (11.7-14.9) 10/18/17 05:10 10/18/17 Pre-Assessment Diagnosis/Proposed Procedure Planned Operative Procedure(s): Laparoscopic appendectomy. Anesthesia History Anesthesia History - ear nose and throat specialist: Anesthesia History - ear nose and throat specialist Hx Hospitalization No 02/25/24 09:11 Any Problems With Anesthesia No 10/02/24 08:24 Cholinesterase deficiency No 10/02/24 08:24 You/Your Family Experience No 10/02/24 08:24 fever (hyperthermia) with Relationship Recent Exposure to Contagious No 10/02/24 08:24 Disease Does patient have nerve No 10/02/24 08:24 stimulator Patient instructed to have No 10/02/24 08:24 device shut off --Does patient have Pacemaker No 10/02/24 09:37 or ICD? When Was Last Pacemaker Check QUESTION #4 FULL TEXT: You/Your Family Experience fever (hyperthermia) with Anesthesia Last Oral Intake Last Oral intake: Last Oral Intake NPO since 00:00 10/02/24 09:37 Meds taken in AM with sips of water? Meds patient instructed to take am of surgery PONV PONV - ear nose and throat specialist: PONV - ear nose and throat specialist Female HX of Motion Sickness HX of N/V After Surgery Non-Smoker Duration of Surgery greater than 60 minutes Number of Risk Factors PONV Score Height & Weight Height & Weight: Anesthesia: Height & Weight Height 6 ft 2 in 10/02/24 09:37 Weight: 157.85 kg 10/02/24 09:37 Body Mass Index (BMI) 44.6 10/02/24 09:37 Respiratory Assessment Respiratory Assessment - ear nose and throat specialist: Respiratory Tract Infection Hx - ear nose and throat specialist Hx Respiratory Tract Infection No 10/02/24 08:24 STOP Sleep Apnea STOP Sleep Apnea - ear nose and throat specialist: STOP Sleep Apnea - ear nose and throat specialist Hx Hypertension No 10/02/24 08:04 Hx Sleep Apnea Yes 10/02/24 08:04 CPAP Yes 10/02/24 08:04 BIPAP No 10/02/24 08:04 Do you snore loudly (louder than talking or can be heard Do you often feel tired/ fatigued/ sleepy during daytime? Has anyone observed you stop breathing during sleep? STOP Results Positive 10/02/24 08:04 QUESTION #5 FULL TEXT : Do you snore loudly (louder than talking or can be heard through closed doors)? Tobacco Use History Tobacco Use History - ear nose and throat specialist: Tobacco Use History - ear nose and throat specialist Tobacco Use Smoking Status Never smoker 10/02/24 08:04 Hx Tobacco Use No 10/02/24 08:04 Years Smoking Packs Smoked per Day Smoking Cessation Date was within the last 15 years Hx Smoking Cessation Date Hx Smoking Cessation Counseling Hematologic Medial History Hematologic Hx - ear nose and throat specialist: Hematologic Medical Hx - pluck trimmer Hx of Blood Transfusion No 10/02/24 08:04 Hx of Transfusion in last 3 No 10/02/24 08:04 Months Date of Last Transfusion (if within last 3 months) Ever experience any problems No 10/02/24 08:04 with transfusion(s)? Specify any problems Hx of Preganancy in last 3 N/A 10/02/24 08:04 Months Nurse Filling Out Transfusion TWOLF 10/02/24 08:04 & Questions: Date: 10/02/24 10/02/24 08:04 Time: 08:05 10/02/24 08:04 Patient unable to answer at this time (ie. confused, unrespo /Reproduction History /Reproductive History - ear nose and throat specialist: /Reproductive Hx- ear nose and throat specialist Hx Now No 10/02/24 08:24 Gestational Age (in weeks): EDC: Hx Hx Para Hx Section SAB No 10/02/24 08:24 Active Medications Active Medications: Current Medications Generic Name Dose Route Start Last Admin Trade Name Freq PRN Reason Stop Dose Admin Acetaminophen 650 mg 10/02/24 06:57 Acetaminophen 325 Mg Tablet PO Q4H PRN PRN Pain 1-10 or Fever Sodium Chloride 250 mls @ 15 mls/hr 10/02/24 03:53 IV .[id number] PRN Saline Flush Sodium Chloride 1,000 mls @ 100 mls/hr 10/02/24 07:00 10/02/24 08:46 IV 100 mls/hr .Q10H ARIK Administration Piperacillin Sod/Tazobactam 50 mls @ 12.5 mls/hr 10/02/24 14:00 Sod 3.375 gm/ Sodium Chloride IV Q8 ARIK Sodium Chloride 250 mls @ 15 mls/hr 10/02/24 08:09 IV .[id number] PRN Saline Flush Sodium Chloride 250 mls @ 15 mls/hr 10/02/24 08:09 IV .[id number] PRN Additional IVPB Infusion Morphine Sulfate 2 - 4 mg 10/02/24 06:57 Morphine 2 Mg/Ml Syringe IV Q2H PRN PRN Pain Score 4-10 Morphine Sulfate 2 - 4 mg 10/02/24 07:36 Morphine 4 Mg/Ml Syringe IV Q2H PRN PRN Pain Score 4-10 Ondansetron HCl 4 mg 10/02/24 06:57 Ondansetron 4 Mg/2 Ml Vial IV Q6H PRN PRN NAUSEA/VOMITING Sodium Chloride 10 - 40 ml 10/02/24 06:57 0.9% Saline Lock 10 Ml Syringe IV UD PRN SALINE FLUSH Sodium Chloride 10 - 40 ml 10/02/24 08:09 0.9% Saline Lock 10 Ml Syringe IV UD PRN SALINE FLUSH PFSH Medical History Depression Sleep apnea CPAP (continuous positive airway pressure) dependence Bronchitis Asthma Anxiety Hypertension Abnormal EKG Chest pain Home Medications ?Medication ?Instructions ?Recorded ?Last Taken ?Type escitalopram oxalate 20 mg tablet 20 mg PO DAILY 03/24/24 Unknown History Allergy/AdvReac Type Severity Reaction Status Date / Time No Known Allergies Allergy Verified 10/02/24 02:57 Family History Father CAD (coronary artery disease) Myocardial infarction, Onset Age: 35 Mother CAD (coronary artery disease) Myocardial infarction, Onset Age: 40 Tobacco use Surgical History History of left knee surgery History of left heart catheterization (10/18/17) Social History Smoking Status: Never smoker second hand exposure: No alcohol intake: current alcohol intake frequency: a few times a month Alcohol type: beer substance use type: does not use caffeine: Yes Type: carbonated beverages Number of servings: 1 and coffee Number of servings: 2 Review of Systems (Anesthesia) ROS Narrative System reviewed and no additional complaints, except as documented.
[2024-10-02] MEDS: Lactated Ringers 1,000 ML 1000 ML IV (10:54)
[2024-10-02] MEDS: Midazolam 2 MG/2 ML Syringe IV (11:00)
[2024-10-02] MEDS: fentaNYL 100 MCG/2 ML Ampul IV (11:00)
[2024-10-02] MEDS: Lidocaine 1% (5 ml sdv) 5 ML Vial 10 ML IV (11:00)
[2024-10-02] MEDS: Bupiv/Epi 0.25% 30 ML Vial (11:39)
--- NOTE | 2024-10-02 11:39 | OP.PCM_ITS ---
Operative Report (Standard) Operative Information Date of Procedure: 10/02/24 Pre-Operative Diagnosis: Acute appendicitis Post-Operative Diagnosis: Acute appendicitis Surgery/Procedure Performed: Laparoscopic appendectomy truck farmer: Yes Senior Resident Care Director: Nivia Carr Tasks completed by special education teaching assistant: Opening & closing and Retracting Type of Anesthesia: General/Regional RN Documented Start/Stop Times: Operation Date: 10/02/24 12:30 Case Time Into Pre-Op 10/02/24 10:31 Anesthesia Start 10/02/24 10:54 Into Room 10/02/24 10:54 Procedure Start 10/02/24 11:17 Procedure Start Time: 11:17 Procedure Stop Time: 11:45 Select all DRAINS/GRAFTS/IMPLANTS that apply: None Estimated Blood Loss: 10 Specimen collected: Yes Description of specimen(s) removed: Appendix Description of surgery: The patient was brought into the operating room and general anesthesia was induced. The left arm was tucked and the abdomen was prepped and draped in usual sterile fashion. A small midline incision was made superior to the umbilicus and deepened to the level of the fascia. The fascia was elevated and incised. The peritoneum was also elevated and incised. A finger sweep was performed and a balloon trocar was placed into the abdomen and inflated. The abdomen was insufflated to 15 mmHg and the camera was inserted and the abdomen w as inspected for any injuries upon entering the abdomen. There were none. The patient was placed in Trendelenburg position and a 5 mm ports placed in the left lower quadrant and suprapubic areas under direct visualization. Next using atraumatic bowel graspers the appendix was identified. The appendix was grasped and elevated and Enseal was used to take down the mesoappendix. A stapler was used to come across the base of the appendix. The appendix was then placed in Endo Catch bag and removed through the umbilical incision. The staple line was inspected and found to be hemostatic and intact. There was some purulence in the pelvis that was washed and suctioned. The midline port was removed and laparoscopically the fascia was closed with a Davis-Cristal needle and 0 Vicryl suture. The 2 5 mm ports are removed under direct visualization. The balloon trocar was deflated and removed and all the air was removed from the abdomen. The incisions were then irrigated with saline and dried. Local anesthetic was injected into the incision sites. The skin incisions were then closed with interrupted 4-0 Monocryl suture and Steri-Strips. Bandages were applied and the patient was awoken and taken to PACU in stable condition. Patient tolerated the procedure well. Surgical Findings: Very inflamed appendix Complications Complications: No Admit VTE Documentation VTE Mechan Device Prophylaxis: SCD's
--- NOTE | 2024-10-02 11:57 | DCINST_ITS ---
Discharge Instructions Diet Discharge Diet: Light diet - advance as tolerated Activity Discharge Activity: May Not Drive (for 2-3 days or while taking narcotic pain medications) May shower in (days): 1 Lifting Restrictions: 15 lbs for 2 weeks Additional Activity Instructions:: Alternate Ibuprofen and Tylenol for pain control, oxycodone for breakthrough pain Dressing / Incision Call your doctor if your incision/area has: Continuous Slow Oozing, Sudden Increased Bleeding, Increased Pain/ Swelling, Increased Redness and Foul Smelling Discharge Call your doctor if you observe: Fever of 101 or Higher Suture Line Care: Avoid Pulling/Pushing and Avoid Pinching/Bending Remove Dressing in: 2 days Cleanse incision/area with: Soap & Water Follow Up Care Please Follow Up With: Lyndon Mayes MD When: Please call to schedule 2 week follow up appointment at [phone] Test Results: Test results from this visit will be discussed in further detail at your follow- up appointment, if applicable. Discharge Plan Admission Admit Date/Time: 10/02/24 06:57 Attending Provider: Lyndon Mayes Primary Care Provider: Ivett Martines NP Discharge Orders/Prescriptions Prescriptions: New oxycodone 5 mg Tablet 5 - 10 mg PO Q4H PRN PRN (Reason: Pain Score 4-10) 5 Days Qty: 14 0RF Continued escitalopram oxalate 20 mg tablet 20 mg PO DAILY Referrals / Follow Up: Ivett Martines NP, BATHROOM TILING PROFESSIONAL-C [Primary Care Provider] - Disposition Disposition (needs filled in before D/C Order can be placed): Home, Self Care
--- NOTE | 2024-10-02 12:30 | APP_PTH ---
PATIENT: NORRIS HUSSEIN LOC: [facility] U#:[id number] AGE/SX: 39/M ROOM: [facility] RE10/02/[address]: Dr. Lyndon Mayes MD : 1985 BED: 1 DIS: 10/02/2024 SPEC #: [id number] RECD: 10/02/24 12:30 STATUS: DEDRICK RENETTA #: [id number] HARSHIL: 10/02/24 12:[address]: Lyndon Mayes DEPT: SURGICAL PATHOLOGY RECD BY: Jose Dyson ENTERED: 10/02/24 12:43 SP TYPE: APPENDIX OTHR DR: ALFONSO Carroll Tissues: A - Appendix, NOS Procedures: Surgery Specimen Level III HEADER OPERATION: Laparoscopic appendectomy PRE-OP DIAGNOSIS: Acute appendicitis TISSUE SUBMITTED: A- Appendix MICROSCOPIC DIAGNOSIS A. Appendix, laparoscopic appendectomy: - Acute appendicitis. MICROSCOPIC DESCRIPTION Slides are reviewed. GROSS DESCRIPTION A. Received in formalin labeled with the patient's name and date of . Designated as appendix is a 6.8 x 1.3 cm carrington-pink to red appendix with copious amounts of attached mesoappendix with patchy fibrinous exudate. The resection margin is inked black and shaved. Sectioning reveals a carrington-pink, centrally erythematous mucosa with a surrounding, somewhat fibrotic wall; there are focal areas of threadlike fibrosis spanning from the mucosa to the underlying mesoappendix (suspicious for healed perforation) located 1.2 cm from the distal tip. Gas Line Repairer sections are submitted in 2 cassettes as follows: A1: Margin, cross-sectionA2: Distal tip (sales service representative, bisected, thinned) OR 10/02/2024 CPT:70522
== END 2024-10-02 18:07 | disposition home or self-care (01) ==
LOC: ED 07:24 → MS3 07:38
PROVIDERS: Admitting Provider Surgery; Emergency Provider Emergency Medicine; PCP Registered Nurse; Visit Provider Surgery
PROC: 0DTJ4ZZ Resection of Appendix, Percutaneous Endoscopic Approach (ICD-10-PCS; CPT 44970; principal; 2024-10-02 12:10)
DX: K35.80 Unspecified acute appendicitis (principal); F41.9 Anxiety disorder, unspecified; I10 Essential (primary) hypertension; G47.33 Obstructive sleep apnea (adult) (pediatric); J45.909 Unspecified asthma, uncomplicated; Z79.899 Other long term (current) drug therapy
CPT/HCPCS: 44970; 74176; 80048; 85025; 88304; 93005; 96365; 96366; 96375; 99285; A4216; J2405